=== PATIENT | female | born 1950 | race Caucasian/White ===

== ENCOUNTER 2023-01-20 09:17 | Inpatient (IN) | payer MEDICARE, SELFPAY ==
[2023-01-20] VITALS (10 sets, daily range): BP systolic 103–119; BP diastolic 69–76; PULSE 92–109; RESP 18–22; TEMP 36.3–37.1; O2SAT 86–98; BMI 23.3
--- NOTE | ~2023-01-20 | XR_ITS ---
EXAMINATION: XR chest 1V DATE: 01/22/2023 12:58 INDICATION: Status post left seventh rib biopsy TECHNIQUE: frontal view of the chest was obtained. COMPARISON: Chest radiograph dated 01/20/2023 FINDINGS: Persistent opacities in the right mid to lower lung zone consistent with small right pleural effusion and associated atelectasis, pneumonia or malignancy. Minimal left basilar atelectasis. No pneumothor ax or left-sided pleural effusion. Heart size is normal. The cardiomediastinal silhouette is normal. Visualized bones and soft tissues are unremarkable. IMPRESSION: 1. No pneumothorax or left pleural effusion post exchange left seventh rib biopsy. 2. Unchanged opacities in the right mid to lower lung zone consistent with small pleural effusion and associated atelectasis, pneumonia, malignancy or some combination thereof. Reviewed, dictated and finalized at location A. IMPRESSION: 1. No pneumothorax or left pleural effusion post exchange left seventh rib biop sy. 2. Unchanged opacities in the right mid to lower lung zone consistent with smal l pleural effusion and associated atelectasis, pneumonia, malignancy or some co mbination thereof.
--- NOTE | ~2023-01-20 | CT_ITS ---
EXAMINATION: CT abdomen pelvis w con INDICATION: Weakness and early satiety TECHNIQUE: Computed tomographic images of the abdomen and pelvis were obtained after the administrati on of 100 cc of Omnipaque 350 intravenous contrast. The dose-length product (DLP) was 381.91 mGy-cm. Automated exposure control and iterative reconstruction technique were employed. COMPARISON: None available FINDINGS: There are pulmonary emboli in the lingula and left lower lobe. There is collapse of much of the right lower lobe with multiple ill-defined heterogeneous masses. There is right hilar and subcar inal lymphadenopathy. The heart size is normal. There is a 2.2 x 1.6 cm mass of the gastrohepatic lig ament. A small right pleural effusion is noted. The liver, spleen, pancreas, and adrenal glands are n ormal. Stones are present in the nondistended gallbladder. The kidneys are unremarkable. There are no dilated loops of bowel. Colonic diverticulosis is present without evidence of diverticulitis. Thromb us is noted in the left superficial femoral vein. There are multiple lytic vertebral body masses of t he spine. A soft tissue mass of L3 extends beyond the posterior margin of the vertebral body and exte nds into the central spinal canal. Lytic lesions are also noted in the right iliac wing as well as mu ltiple ribs. No free intraperitoneal gas or evidence of bowel obstruction. IMPRESSION: 1. Right lower lobe mass with collapse of much of the right lower lobe. 2. Widespread osseous metastatic disease as well as subcarinal and upper abdominal lymphadenopathy. 3. Pulmonary emboli in proximal segmental branches of the lingula and left lower lobe. 4. Deep venous thrombosis of the left superficial femoral vein. These findings were discussed with Elsa Byrd PA-C in the Emergency Department at [facility] on 01/20/2023. Reviewed, dictated and finalized at location L. IMPRESSION: 1. Right lower lobe mass with collapse of much of the right lower lobe. 2. Widespread osseous metastatic disease as well as subcarinal and upper abdomi nal lymphadenopathy. 3. Pulmonary emboli in proximal segmental branches of the lingula and left lowe r lobe. 4. Deep venous thrombosis of the left superficial femoral vein. These findings were discussed with Elsa Byrd PA-C in the Emergency Department at 1145 hours on 01/20/2023.
--- NOTE | ~2023-01-20 | US_ITS ---
EXAMINATION: US venous doppler [facility] DATE: 01/20/2023 13:11 INDICATION: Acute pulmonary embolus TECHNIQUE: Dawson scale images without and with compression and Doppler images of the bilateral lower e xtremity veins were obtained. COMPARISON: None FINDINGS: The right common femoral vein, profunda femoral vein, femoral vein, popliteal vein, peroneal trunk, p osterior tibial veins, and greater saphenous vein are patent. There is thrombosis in the left femoral, popliteal, and gastrocnemius veins and partial thrombosis in the posterior tibial veins peroneal veins not evaluated. The common femoral, profunda, and greater s aphenous veins are patent. IMPRESSION: 1. Thrombosis in the left femoral, popliteal, and gastrocnemius veins and partial thrombosis of the l eft posterior tibial veins, known findings from today's CT examination. Reviewed, dictated and finalized at location L. IMPRESSION: 1. Thrombosis in the left femoral, popliteal, and gastrocnemius veins and parti al thrombosis of the left posterior tibial veins, known findings from today's C T examination.
--- NOTE | ~2023-01-20 | CT_ITS ---
EXAMINATION: CT brain wo con DATE: 01/20/2023 18:48 INDICATION: metastases vs. hemorrhage . TECHNIQUE: Computed tomography (CT) of the head was performed without intravenous contrast. The mA wa s adjusted according to patient size. Iterative reconstruction technique was employed. The dose-lengt h product was 756.67 mGy-cm. COMPARISON: CT brain, same date at 12:34 PM. FINDINGS: No acute intracranial hemorrhage or extra-axial fluid collection. No hydrocephalus, mass, or herniation. The 6 mm right parietal region lesion is no longer identified. No acute ischemic infarct. Unremarkable dural venous sinus attenuation. No acute osseous abnormality. The aerated spaces are clear. Mild atrophy and chronic white matter change. Atherosclerotic intracranial calcification. IMPRESSION: The 6 mm right parietal region hypodensity is no longer seen, which most likely represents resolved s purious contrast enhancement of a metastatic brain lesion. Consider nonemergent but timely MR of the brain without and with contrast for further evaluation. Reviewed, dictated and finalized at location K. IMPRESSION: The 6 mm right parietal region hypodensity is no longer seen, which most likely represents resolved spurious contrast enhancement of a metastatic brain lesion . Consider nonemergent but timely MR of the brain without and with contrast for further evaluation.
--- NOTE | ~2023-01-20 | XR_ITS ---
EXAMINATION: XR chest 2V DATE: 01/20/2023 10:26 INDICATION: Shortness of breath and weakness TECHNIQUE: PA and lateral views of the chest are obtained. COMPARISON: None available FINDINGS: There are minimal airspace opacities of the lung bases. There are small pleural effusions, right greater than left. The cardiomediastinal silhouette is normal. There is mild thoracic spondylos is. IMPRESSION: 1. Small pleural effusions, right greater than left, with associated bibasilar airspace opacities, li gemini atelectasis. Reviewed, dictated and finalized at location L. IMPRESSION: 1. Small pleural effusions, right greater than left, with associated bibasilar airspace opacities, likely atelectasis.
--- NOTE | ~2023-01-20 | XR_ITS ---
XR lumbar spine 2-3V DATE: 01/25/2023 18:01 INDICATION: Fall. Back pain, more on the left. TECHNIQUE: AP, lateral, coned lateral lumbosacral views COMPARISON: None FINDINGS: There is mild dorsal scoliosis of the lumbar spine. There is moderately severe to severe degenerative disc disease throughout the lumbar and lumbosacral spine, most severe at L2-3, L4-5 and L5-S1. There is degenerative change at the apophyseal joints with grade 1 anterolisthesis at L4-5. No fracture or bone destruction. The included lower thoracic and lumbar pedicles are intact. Normal sacroiliac joints. IMPRESSION: Moderately severe to severe degenerative disc disease Grade 1 anterolisthesis at L4-5 due to degenerative change at the apophyseal joints Reviewed, dictated and finalized at location A. IMPRESSION: Moderately severe to severe degenerative disc disease Grade 1 anterolisthesis at L4-5 due to degenerative change at the apophyseal pavel ints
--- NOTE | ~2023-01-20 | CT_ITS ---
EXAMINATION: CT brain wo con DATE: 01/20/2023 12:41 INDICATION: Metastatic disease TECHNIQUE: Computed tomography (CT) of the head was performed without intravenous contrast. Sagittal and coronal reconstructions were performed. The mA was adjusted according to patient size. Iterative reconstruction technique was employed. The dose-length product was 605.33 mGy-cm. COMPARISON: None FINDINGS: There is residual intravascular contrast related to the contrast enhanced CT of the abdomen and pelvi s performed an hour and 15 minutes earlier. There is a 6 mm enhancing intra-axial lesion in the right temporoparieto-occipital region suspicious for metastatic disease. No other larger masses, mass effe ct or other abnormally enhancing brain lesions. No acute intracranial hemorrhage, acute infarction or abnormal extra axial fluid collection. There is mild scattered white matter hypoattenuation consiste nt with chronic small vessel ischemic disease. Ventricles are normal and symmetric. The orbits, paran kenny sinuses and mastoid air cells are normal. Left vertebral artery is dominant. Intracranial calcif ied cerebral atherosclerosis is noted. IMPRESSION: 1. 6 mm hypoattenuation lesion at the right temporal parietal occipital region suspicious for facet d isease with enhancement resulting from residual intravenous contrast from earlier contrast-enhanced C T of the abdomen and pelvis. Differential would include less likely small intraparenchymal hemorrhage . Dr. Jo discussed these findings with Dr. Byrd at 12:55 PM. 2. Mild scattered white matter hypoattenuation consistent with chronic small vessel ischemic disease. Reviewed, dictated and finalized at location A. IMPRESSION: 1. 6 mm hypoattenuation lesion at the right temporal parietal occipital region suspicious for facet disease with enhancement resulting from residual intraveno us contrast from earlier contrast-enhanced CT of the abdomen and pelvis. Differ ential would include less likely small intraparenchymal hemorrhage. Dr. Hand t discussed these findings with Dr. Byrd at 12:55 PM. 2. Mild scattered white matter hypoattenuation consistent with chronic small ve ssel ischemic disease.
--- NOTE | ~2023-01-20 | CT_ITS ---
CT Scan of the Chest without Contrast: Clinical Indication: Malignancy Technique: Contiguous sections were acquired throughout the chest without intravenous contrast. Dose reduction technique was used on this scan by utilizing automated exposure control and iterative recon struction technique. The dose-length product (DLP) was 123.91 mGy-cm. Findings: There is lymphadenopathy in the upper mediastinum, at the precarinal region, and probably in the subc arinal and right hilar regions. No aortic aneurysm. Coronary artery calcifications are present. There is extensive dense consolidation throughout the right lung base, with extensive, near complete consolidation of the right middle and lower lobes. Left lung is clear. Images through the upper abdomen reveal fatty infiltration of the liver. Multiple lytic lesions are present scattered through the visualized skeleton. Impression: Dense, near complete consolidation of the right middle and lower lobes. There is presumed underlying malignancy, though differentiation between malignancy and atelectatic lung is very limited. Precise d elineation of the extent of malignant involvement is limited. Lytic osseous lesions are consistent with metastatic disease. Mediastinal and right hilar lymphadenopathy is compatible with marylu metastatic disease. Fatty infiltration of the liver. Reviewed, dictated and finalized at location . Impression: Dense, near complete consolidation of the right middle and lower lobes. There i s presumed underlying malignancy, though differentiation between malignancy and atelectatic lung is very limited. Precise delineation of the extent of maligna nt involvement is limited. Lytic osseous lesions are consistent with metastatic disease. Mediastinal and right hilar lymphadenopathy is compatible with marylu metastatic disease. Fatty infiltration of the liver.
--- NOTE | ~2023-01-20 | MR_ITS ---
MRI of the brain Clinical History: Right parietal lesion Technique: Axial and sagittal T1-weighted images were acquired. These were followed by axial T2-weigh aym, diffusion weighted, gradient, and FLAIR images. Following intravenous administration of 13 cc Mu ltiHance gadolinium, T1-weighted fat-sat imaging was performed in the axial and coronal and sagittal planes. Findings: Several small foci of restricted diffusion in the high left frontal and left parietal lobes . Questionable small focus of restricted diffusion in the left cerebellar hemisphere. There is a 5 mm ring-enhancing lesion in the right parietal lobe with mild surrounding vasogenic hien a (series 9 image 14). No other intracranial mass lesion identified. There are mild background chroni c white matter changes in the periventricular white matter bilaterally. Ventricles and subarachnoid spaces are unremarkable. Orbits are unremarkable. Paranasal sinuses and m astoid air cells are clear. Major intracranial flow voids appear intact. Sagittal midline structures are intact. No other abnormal postcontrast enhancement identified. IMPRESSION: 5 mm ring-enhancing right parietal lobe lesion with mild surrounding vasogenic edema, most consistent with a small metastatic lesion. Several small focal areas of acute infarct in the left frontal and parietal lobes, as well as questio nable small focus of additional acute infarct in the left cerebellum. Mild background chronic white matter changes. Reviewed, dictated and finalized at location M. IMPRESSION: 5 mm ring-enhancing right parietal lobe lesion with mild surrounding vasogenic edema, most consistent with a small metastatic lesion. Several small focal areas of acute infarct in the left frontal and parietal lob es, as well as questionable small focus of additional acute infarct in the left cerebellum. Mild background chronic white matter changes.
--- NOTE | ~2023-01-20 | US_ITS ---
EXAMINATION: US biopsy bone superficial DATE: 01/22/2023 13:12 INDICATION: Metastatic lytic left seventh rib bone lesion TECHNIQUE: The procedure including the risks and benefits was discussed with the patient. Risks discu ssed included bleeding and infection. The patient understood the risks and agreed to proceed. The sk in overlying the anterior left seventh rib was prepped and draped in usual sterile fashion. Anesthet ic was administered with 1% lidocaine subcutaneously. An 18 gauge core biopsy needle was advanced un orquidea continuous ultrasound observation to the lesion of interest. 6 core biopsy specimens were obtain ed. The needle was removed and the entry site was cleaned and dressed. Post procedure ultrasound de monstrated no hemorrhage. Post procedure chest radiograph demonstrated no left-sided pneumothorax or pleural effusion. FINDINGS: Ultrasound images demonstrate patchy needle advanced into a hypoechoic expansile lytic mass at the medial posterior left seventh rib. The lesion measures approximately 4 x 1.5 cm with mildly l obular margins with localized loss of the overlying echogenic and shadowing posterior cortex. IMPRESSION: 1. Successful Ultrasound-guided biopsy of expansile likely metastatic lytic mass at the posterior lef t seventh rib. Reviewed, dictated and finalized at location A. IMPRESSION: 1. Successful Ultrasound-guided biopsy of expansile likely metastatic lytic mas s at the posterior left seventh rib.
--- NOTE | ~2023-01-20 | XR_ITS ---
XR hip BI 2V w AP pelvis DATE: 01/25/2023 18:01 INDICATION: Fall. Pain. TECHNIQUE: AP pelvis. AP and lateral views of each COMPARISON: None FINDINGS: Severe degenerative disc disease is included L2-3, L3-4, L4-5 and L5-S1. The pubic symphysis and sacroiliac joints are intact. Mild bilateral hip osteoarthritis. No pelvic fracture or bone destruction. The pubic symphysis and sacroiliac joints are intact. No fracture or dislocation, avascular necrosis or bone destruction of either hip. IMPRESSION: Multilevel severe lumbar degenerative disc disease Mild bilateral hip osteoarthritis Reviewed, dictated and finalized at location A.
--- NOTE | 2023-01-20 09:46 | ECG_ITS ---
Measurements Intervals [place] Rate: 96 P: 39 MN: 139 QRS: -26 QRSD: 134 T: 26 QT: 374 QTc: 474 Interpretive Statements SINUS RHYTHM RIGHT BUNDLE BRANCH BLOCK ABNORMAL ECG NO PREVIOUS ECG AVAILABLE FOR COMPARISON Electronically Signed On 01-20-2023 16:29:59 CDT by Terry Chopra D.O.
--- NOTE | 2023-01-20 09:52 | ED.GENADULT ---
HPI - General Adult General Chief complaint: Weakness <Elsa Byrd PA-C - Last Filed: 01/20/23 19:26> Stated complaint: no appetite for 1 month <Elsa Byrd PA-C - Last Filed: 01/20/23 19:26> Time Seen by Provider: 01/20/23 09:39 <Elsa Byrd PA-C - Last Filed: 01/20/23 19:26> History of Present Illness HPI narrative: Patient is a 72-year-old female with history of hypertension here due to concerns over weakness. Patient states that she has felt generally unwell for the past 2 or 3 weeks, progressing in nature, over the past several days she has felt increased difficulty with her ADLs. +intentional 20 lb weight loss over past 2 months. She additionally feels short of breath, has little to no appetite and feels dehydrated. She states that she saw her PCP for this issue, had outpatient labs that showed an elevated TSH, elevated platelets and elevated white blood cell count. Her PCP ordered follow-up labs but patient stated that she cannot wait to have these done as an outpatient because she felt too weak. She denies any chest pain, nausea or vomiting, constipation, fevers or chills, cough, leg swelling. <Elsa Byrd PA-C - Last Filed: 01/20/23 19:26> Related Data Allergies/adverse reactions: Allergies Allergy/AdvReac Type Severity Reaction Status Date / Time No Known Allergies Allergy Verified 01/08/23 14:29 <Elsa Byrd PA-C - Last Filed: 01/20/23 19:26> Review of Systems Review of Systems: Gen.: Reports weakness Eyes: Denies eye pain or visual change ENT: Denies congestion Respiratory: Reports shortness of breath CV: Denies chest pain or palpitations GI: Denies abdominal pain nausea, emesis or diarrhea denies burning, urgency, frequency or hematuria Musculoskeletal: Denies back pain or muscle pain Neuro: Denies numbness, tingling, weakness or focal weakness Skin: Denies rash Except as documented, all other systems reviewed and negative <Elsa Byrd PA-C - Last Filed: 01/20/23 19:26> PMFSH Past Medical History Medical History: Medical History (Updated 01/21/23 @ 13:14 by Marcelo Mcmahon MD) Anxiety Hypertension <Elsa Byrd PA-C - Last Filed: 01/20/23 19:26> Surgical History Surgical History: Surgical History (Updated 01/21/23 @ 13:14 by Marcelo Mcmahon MD) Status post surgical removal of malignant neoplasm of skin <Elsa Byrd PA-C - Last Filed: 01/20/23 19:26> Family History Family History: Family History Mother Family history of malignant neoplasm Other Family history of congenital heart disease <Elsa Byrd PA-C - Last Filed: 01/20/23 19:26> Social History Social History: Social History (Updated 01/20/23 @ 23:15 by Jessica Tilley PA-C) Social History: Surrogate medical decision maker: Yesenia Donaldson, daughter. Code status: Full code. Smoking status: Former smoker Additional smoking assessment comments: Quit 38 years ago. Alcohol intake: never Substance use: current Substance use type: marijuana Lack of Transportation: No Lack of Food: Never True Current Housing: I Have Housing Concerned About Future Housing: No Difficulty Paying Gas/Electric Bills: No Difficulty Paying for Meds: No Currently Unemployed: No Education: High School Diploma/GED Difficulty w/ Childcare or Family Care: Decline to Answer Additional living arrangements comments: Lives alone in [place]. Additional occupation/education comments: Retired from [employer]. Spiritual care concerns: No <Elsa Byrd PA-C - Last Filed: 01/20/23 19:26> Exam Narrative: APPEARANCE: Well appearing, no pain in distress, well-nourished. Head: Normocephalic and atraumatic. EYES: PERRLA/EOMI, conjunctivae clear NOSE: No nasal drainage EARS: External ear normal in appearanc
[2023-01-20 10:34] LABS: Lactic Acid Reflex 2.2 mmol/L (0.7-2.0)
[2023-01-20 10:34] LABS: Basophils Absolute Auto 0.1 K/mm3 (0.0-0.1); Basophils Percent Auto 0.4 % (0.2-1.2); Eosinophils Absolute Auto 0.1 K/mm3 (0-0.3); Eosinophils Percent Auto 0.2 % (0-4.4); Hematocrit 36.3 % (37.0-47.0); Hemoglobin 11.1 g/dL (12.0-15.0); Immature Granulocyte Absolute 0.32 K/mm3 (0.00-0.031); Immature Granulocyte Percent A 1.5 % (0-0.5); Lymphocytes Absolute Auto 2.12 K/mm3 (0.9-3.2); Lymphocytes Percent Auto 9.7 % (18.3-44.2); Mean Corpuscular HGB Conc 30.6 g/dl (32-36); Mean Corpuscular Hemoglobin 25.3 pg (26-34); Mean Corpuscular Volume 82.9 fl (80-100); Mean Platelet Volume 9.2 fl (7.4-10.4); Monocytes Absolute Auto 1.6 K/mm3 (0.1-0.6); Monocytes Percent Auto 7.5 % (2.6-8.5); Neutrophils Absolute Auto 17.5 K/mm3 (1.3-6.7); Neutrophils Percent Auto 80.7 % (45.5-73.1); Platelet Count Result 613 k/mm3 (150-375); Red Blood Count 4.38 M/mm3 (4.2-5.4); Red Cell Distribution Width 16.5 % (11.5-14.5); White Blood Count 21.8 K/mm3 (4.5-10.0)
[2023-01-20 10:49] LABS: Alanine Aminotransferase 58 U/L (6-35); Albumin Level 3.5 g/dL (3.5-5.1); Alkaline Phosphatase 145 U/L (38-126); Anion Gap 9 mmol/L (8-16); Aspartate Amino Transferase 65 U/L (14-36); Bilirubin,Total 0.7 mg/dL (0.2-1.3); Blood Urea Nitrogen 11 mg/dL (7-17); Carbon Dioxide 27 mmol/L (22-30); Chloride 98 mmol/L (98-107); Estimated CRCL calculation 71 ml/min; Estimated Glomerular Filt Rate > 60; Glucose 156 mg/dL (65-110); Lipase 47 U/L (23-300); Sodium 134 mmol/L (137-145)
[2023-01-20 10:57] LABS: Influenza A QL RT-PCR Negative (Negative); Influenza B QL RT-PCR Negative (Negative); SARS-CoV-2 RNA PCR Negative
[2023-01-20 11:02] LABS: INR 1.3; Prothrombin Time 15.5 Seconds (11.1-14.7)
[2023-01-20 11:03] LABS: Partial Thromboplastin Time 30.7 SECONDS (22.3-36.8)
[2023-01-20] MEDS: SODIUM CHLORIDE 0.9% IV 1,000 ML 999 ML IV CONT ×2 (11:10→15:34)
[2023-01-20 11:29] LABS: NT Pro B Type Natriuretic Pept 333 pg/mL (19.9-100)
[2023-01-20] MEDS: ENOXAPARIN 60 MG/0.6 ML SYRINGE SUB-Q ×2 (13:09→23:08)
[2023-01-20 13:13] LABS: Reflex Lactic Acid Yes or No Add Lactic
[2023-01-20 13:30] LABS: Appearance Urine Clear (Clear); Bacteria Urine Rare /hpf; Bilirubin Urine Negative (Negative); Blood Urine Negative (Negative); Color Urine Yellow (Yellow); Glucose Urine UA Negative (Negative); Ketones Urine Negative (Negative); Leukocyte Esterase Ur Trace LEU/UL (Negative); Nitrate Urine Negative (Negative); Non Pathogenic Casts 0-2; Protein Urine Trace mg/dL (Negative); RBC Urine 0-2 /hpf (0-2); Squamous Epithelial Cell Urine Few /hpf (Few)
[2023-01-20 13:41] LABS: Lactic Acid 2.2 mmol/L (0.7-2.0)
[2023-01-20 13:53] LABS: Specific Grav Ur 1.073 (1.001-1.035)
[2023-01-20 14:09] LABS: Add Urine Microscopic? YES
[2023-01-20] MEDS: MORPHINE SULFATE (*CRX) 4 MG/ML INJ IV PUSH ×2 (15:42→19:07)
--- NOTE | 2023-01-20 20:00 | PM.IMHP ---
H&P: HPI History of Present Illness Date/Time: 01/20/23 20:00 Chief Complaint: Weakness, poor appetite, and other symptoms. Narrative: This is a very pleasant 72-year-old female with hypertension who presented to the emergency department from home for evaluation of weakness, poor appetite, and other symptoms. Patient provides the following history. She had a fall in November in which she landed on her right side and she endorses pain in her ribs since that time. She has also lost 20 lb in the last couple of months however to be did that to the fact that she started to do intermittent fasting. Her appetite has been poor however and she endorses early satiety. She feels run down and dehydrated. The last several weeks she has had occasional sensations of racing heart and is getting short of breath with exertion. She has an occasional cough which is rarely productive of clear phlegm. She saw her doctor recently and had labs drawn. According to the patient her white blood cell count was elevated as well as her TSH and her platelet count. Follow-up labs and imaging were ordered though she has not had them done as of yet because she is felt to weak. She denies fever, chills, sweats, headache, vertigo, focal weakness, sinus congestion, sore throat, chest and pleuritic pain, vomiting, diarrhea, melena, hematochezia, dysuria, syncope, near syncope. Vital signs were stable on arrival to the ED. pertinent labs include a WBC count of 21.1, hemoglobin 11.1, platelets 613, sodium 134, potassium 4.0, BUN 11, creatinine 0.60, lactic acid 2.2, AST 65, ALT 58, alkaline phosphatase 145, total bilirubin 0.7, TSH 8.230, T4 13.10, lipase 47. Urine specific gravity was elevated with trace leukocyte esterase, rare bacteria, and 11 to 20 WBC. She was negative for influenza and COVID. CT of the abdomen and pelvis showed a right lower lobe mass with collapse of much of the right lower lobe with widespread osseous metastatic disease as well as subcarinal and upper abdominal lymphadenopathy, pulmonary emboli in the proximal segmental branches of the lingula and left lower lobe, and deep venous thrombosis of the left superficial femoral vein. Initial brain CT showed a 6 mm hypoattenuation lesion at the right temporal parietal occipital region suspicious for metastatic disease. As she had previously gotten IV contrast there was some enhancement and small intraparenchymal hemorrhage could not be ruled out. The lesion was no longer seen on repeat brain CT 6 hours thereafter. She is being admitted in this setting for further treatment and evaluation. Review of Systems Review of Systems: Twelve systems were reviewed and are negative except for as per HPI. [facility] Past Medical History Medical History (Updated 01/20/23 @ 23:37 by Jessica Tilley PA-C) Anxiety Hypertension Surgical History Surgical History (Updated 01/20/23 @ 23:12 by Jessica Tilley PA-C) Status post surgical removal of malignant neoplasm of skin Family History Family History Mother Family history of malignant neoplasm Other Family history of congenital heart disease Social History Social History (Updated 01/20/23 @ 23:15 by Jessica Tilley PA-C) Social History: Surrogate medical decision maker: Yesenia Donaldson, daughter. Code status: Full code. Smoking status: Former smoker Additional smoking assessment comments: Quit 38 years ago. Alcohol intake: never Substance use: current Substance use type: marijuana Lack of Transportation: No Lack of Food: Never True Current Housing: I Have Housing Concerned About Future Housing: No Difficulty Paying Gas/Electric Bills: No Difficulty Paying for Meds: No Currently Unemployed: No Education: High School Diploma/GED Difficulty w/ Childcare or Family Care: Decline to Answer Additional living arrangements comments: Lives alone in [place]. Additional occupation/educ
--- NOTE | 2023-01-20 21:41 | ADMGEN ---
This patient, Swati Mancia, was admitted to [facility] Room 322-02. Patient/family oriented to hospital policies and general routines including ID bracelet, bed and alarms, visiting hours, pain management, procedures, bathroom and other care routines, personal items, smoking policy, room service/diet, and visiting hours. Information on how to activate the Rapid Response Team has been discussed. Patient/Family are encouraged to report perceived risks to care and to ask questions if they do not understand what they are told or what they should do.
[2023-01-21] VITALS (8 sets, daily range): BP systolic 113–128; BP diastolic 68–74; PULSE 89–94; RESP 18–20; TEMP 36.2–36.7; O2SAT 90–95
[2023-01-21] MEDS: PIPERACILLN/TAZ 3.375GM/NS50ML 3.375 GM/50 ML BAG IVPB ×5 (00:43→23:22)
[2023-01-21] MEDS: HYDROcodone/acetaminophen (*CRX) 5-325 MG TABLET 1 TAB PO ×3 (05:14→20:14)
[2023-01-21 06:44] LABS: Hematocrit 28.6 % (37.0-47.0); Hemoglobin 8.9 g/dL (12.0-15.0); Mean Corpuscular HGB Conc 31.1 g/dl (32-36); Mean Corpuscular Hemoglobin 25.3 pg (26-34); Mean Corpuscular Volume 81.3 fl (80-100); Mean Platelet Volume 9.2 fl (7.4-10.4); Platelet Count Result 535 k/mm3 (150-375); Red Blood Count 3.52 M/mm3 (4.2-5.4); Red Cell Distribution Width 16.5 % (11.5-14.5); White Blood Count 19.6 K/mm3 (4.5-10.0)
[2023-01-21 06:52] LABS: Alanine Aminotransferase 37 U/L (6-35); Albumin Level 2.9 g/dL (3.5-5.1); Alkaline Phosphatase 103 U/L (38-126); Anion Gap 5 mmol/L (8-16); Aspartate Amino Transferase 36 U/L (14-36); Bilirubin,Total 0.7 mg/dL (0.2-1.3); Blood Urea Nitrogen 6 mg/dL (7-17); Calcium 8.6 mg/dL (8.4-10.2); Carbon Dioxide 27 mmol/L (22-30); Chloride 101 mmol/L (98-107); Estimated CRCL calculation 102 ml/min; Estimated Glomerular Filt Rate > 60; Glucose 101 mg/dL (65-110); Magnesium 1.9 mg/dL (1.6-2.3); Potassium 3.8 mmol/L (3.4-5.0); Sodium 133 mmol/L (137-145)
--- NOTE | 2023-01-21 08:00 | ECHO_ITS ---
Patient Info Name: Swati Mancia Age: 72 years : 1950 Gender: Female Ht: 67 in Wt: 148 lbs BSA: 1.79 m2 HR: 78 bpm BP: 119 / 73 mmHg Heart Rhythm: Sinus Rhythm, Right Bundle Branch Block Technical Quality: Good Exam Date: 01/21/2023 9:37 AM Exam Location: [facility] Room: [facility] Patient Status: Inpatient Admit Date: 01/21/2023 Staff Ordering Physician: Jessica Tilley PA-C Video Control Engineer: Lea Moore RDCS Attending Provider: Mike Stapleton MD Referring Physician: Jarek CESAR; Exam Type: CA echo doppler color flow Study Info Indications - pulmonary embolism hypertension Complete two-dimensional, color flow and Doppler transthoracic echocardiogram is performed. Summary 1. Complete two-dimensional, color flow and Doppler transthoracic echocardiogram is performed. 2. Left ventricular chamber dimension is normal. 3. Left ventricular systolic function is normal, estimated at 60-65%. 4. Left ventricular septal wall motion is abnormal with septal motion related to bundle branch block. 5. The left ventricular diastolic function is grade I diastolic dysfunction. 6. Right ventricular chamber dimension is mildly enlarged. 7. Right ventricular systolic function is normal. 8. Atrial septum appears aneurysmal. 9. There is trace mitral valve regurgitation. 10. There is trace tricuspid valve regurgitation. 11. There is trivial pericardial effusion. Left Ventricle Left ventricular chamber dimension is normal. Left ventricular systolic function is normal, estimated at 60-65%. There is no increased left ventricular wall thickness. Left ventricular septal wall motion is abnormal with septal motion related to bundle branch block. The left ventricular diastolic function is grade I diastolic dysfunction. Right Ventricle Right ventricular chamber dimension is mildly enlarged. Right ventricular systolic function is normal. Left Atria Left atrial chamber dimension is normal. Right Atria Right atrial chamber dimension is normal. Atrial Septum Atrial septum appears aneurysmal. Intact interatrial septum visualized by color flow imaging. Aortic Valve The aortic valve is trileaflet. There is no aortic valve stenosis. There is no aortic valve regurgitation. There is mild aortic valve calcification. Pulmonic Valve The pulmonic valve is not well visualized. Mitral Valve The mitral valve has normal leaflets. There is no mitral valve stenosis. There is trace mitral valve regurgitation. Tricuspid Valve There is no significant tricuspid valve stenosis. There is trace tricuspid valve regurgitation. Pericardium/Pleural There is trivial pericardial effusion. Inferior Vena Cava Normal inferior vena cava with >50% collapse upon inspiration consistent with normal right atrial pressure, 3 mmHg. Aorta The aortic root size at the sinus of Valsalva is normal. Left Ventricular Outflow Tract Name Value Normal LVOT 2D LVOT Diameter 2.0 cm LVOT Doppler LVOT Peak Gradient 5 mmHg LVOT Mean Gradient 3 mmHg
[2023-01-21 08:54] LABS: Hepatitis B Surface Antigen Negative (Negative)
[2023-01-21 09:00] LABS: HAV RESULT Negative (Negative); Hepatitis B Core IgM Result Negative (Negative)
[2023-01-21 09:12] LABS: Hepatitis C Virus Antibody Negative (Negative)
[2023-01-21] MEDS: amLODIPine BESYLATE 5 MG TABLET 10 MG PO (09:12)
[2023-01-21] MEDS: ENOXAPARIN 80 MG/0.8 ML SYRINGE 70 MG SUB-Q (09:13)
[2023-01-21 09:38] LABS: Free T4 Free Thyroxine Reflex 1.86 ng/dL (0.78-2.19)
[2023-01-21 10:51] LABS: Total Triiodothyronine (T3) 1.33 NG/ML (0.97-1.69)
--- NOTE | 2023-01-21 13:06 | PDONCCN ---
HPI - Date of Consult Date/Time: 01/21/23 13:06 Requesting Physician: Mike Stapleton MD Primary Care Provider: Ravindra Mayes DO - Consult Narrative Narrative: Swati Mancia is a 72 year old female with a distant smoking history presents with pain dyspnea PE with a large rt Lung lesion- Recent weight loss and rib pain on ER presentation findings of Lung mass PE and lymphadenopathy. She has a 6 mm brain lesion w/o mass effect and no neurologic symptoms. Untill recemtly in good health. No significant family history. leukocytosis and thrombocytosis most likely secondary to underlying neoplasm. Review of Systems - Constitutional Reports body ache(s), Reports weight loss - Respiratory Reports dyspnea PMFSH Medical History: Medical History (Last Updated 01/20/23 @ 23:13 by Jessica Tilley PA-C) Anxiety Hypertension Surgical History: Surgical History (Last Updated 01/20/23 @ 23:12 by Jessica Tilley PA-C) Status post surgical removal of malignant neoplasm of skin Family History: Family History (Last Reviewed 01/20/23 @ 23:13 by Jessica Tilley PA-C) Mother Family history of malignant neoplasm Other Family history of congenital heart disease - Social History Social History: Social History (Last Updated 01/20/23 @ 23:15 by Jessica Tilley PA-C) Alcohol Use: Alcohol intake: never Substance Use: Substance use: current Substance use type: marijuana Others: Spiritual care concerns: No Smoking Status: Smoking status: Former smoker Approximate Smoking End Date: 1984 Comments: Additional smoking assessment comments: Quit 38 years ago. Social Determinants of Health: Has the Lack of Transportation Kept You From Medical Appointments or From Getting Medications?: No Within the Past 12 Months, Were You Worried Whether Your Food Would Run Out Before You Got Money to Buy More?: Never True What is Your Housing Situation Today?: I Have Housing Are You Worried That in the Next 2 Months, You May Not Have Your Own Housing to Live In?: No Do You Have Trouble Paying Your Heating Or Electricity Bill?: No Do You Have Trouble Paying For Medicines?: No Are You Currently Unemployed and Looking for Work?: No Highest Level of Education Completed: High School Diploma/GED Do You Have Trouble With Childcare or the Care of a Family Member?: Decline to Answer Exam - General cachexic - Vital Signs Vital Signs - 24 hr 01/20/23 15:52 01/20/23 16:45 01/20/23 20:55 Temperature Pulse Rate 92 93 Respiratory Rate 20 22 H 18 Blood Pressure 105/75 116/69 113/74 Pulse Oximetry 95 91 Oxygen Delivery Oxygen Flow Rate 01/20/23 22:00 01/20/23 21:10 01/20/23 21:25 Temperature 36.3 C L Pulse Rate 93 Respiratory Rate 18 Blood Pressure 119/73 Pulse Oximetry 86 L 86 L 94 Oxygen Delivery Room Air Nasal Cannula Oxygen Flow Rate 2 01/21/23 00:05 01/21/23 04:00 01/21/23 06:00 Temperature 36.2 C L Pulse Rate 89 90 92 Respiratory Rate 18 Blood Pressure 113/70 Pulse Oximetry 95 Oxygen Delivery Oxygen Flow Rate 01/21/23 09:35 01/21/23 08:00 Temperature Pulse Rate Respiratory Rate Blood Pressure Pulse Oximetry 90 94 Oxygen Delivery Nasal Cannula Nasal Cannula Oxygen Flow Rate 2 2 - Lab Results Laboratory Last Values WBC 19.6 K/mm3 (4.5-10.0) H 01/21/23 06:17 RBC 3.52 M/mm3 (4.2-5.4) L 01/21/23 06:17 Hgb 8.9 g/dL (12.0-15.0) L 01/21/23 06:17 Hct 28.6 % (37.0-47.0) L 01/21/23 06:17 MCV 81.3 fl (80-100) 01/21/23 06:17 MCH 25.3 pg (26-34) L 01/21/23 06:17 MCHC 31.1 g/dl (32-36) L 01/21/23 06:17 RDW 16.5 % (11.5-14.5) H 01/21/23 06:17 Plt Count 535 k/mm3 (150-375) H 01/21/23 06:17 MPV 9.2 fl (7.4-10.4) 01/21/23 06:17 Immature Gran % (Auto) 1.5 % (0-0.5) H 01/20/23 09:55 Neut
--- NOTE | 2023-01-21 14:22 | PM.IMPN ---
Progress Note: A&P Assessment and Plan (1) Sepsis: Code(s): A41.9 - Sepsis, unspecified organism Status: Acute Assessment and Plan: Present on admission with tachycardia, leukocytosis, and elevated lactic acid level in the setting of presumed postobstructive pneumonia. Urine is a bit abnormal though she is asymptomatic. Blood, sputum, and urine cultures pending. Continue antibiotic health ordered (2) Postobstructive pneumonia: Code(s): J18.9 - Pneumonia, unspecified organism Status: Acute Assessment and Plan: Continue Zosyn. Sputum culture ordered. (3) Mass of right lung: Code(s): R91.8 - Other nonspecific abnormal finding of lung field Status: Acute Assessment and Plan: Multiple ill-defined heterogeneous masses noted in the right lower lobe on CT of the abdomen and pelvis with widespread osseous metastatic disease and subcarinal and upper abdominal lymphadenopathy. Oncology and pulmonology consulted. Discussed with oncologist suggested tissue biopsy. Discussed with Radiology for forms biopsy of right chest wall bony lesion for further evaluation hold Lovenox tonight and perform a biopsy tomorrow (4) Lytic bone lesions on xray: Code(s): M89.9 - Disorder of bone, unspecified Status: Acute Assessment and Plan: Patient has been having pain, mainly in the right ribs since November. Analgesics as needed. biopsy planned 1 of the bone lesions in the chest (5) Pulmonary embolism: Code(s): I26.99 - Other pulmonary embolism without acute cor pulmonale Status: Acute Assessment and Plan: Continue Lovenox 1 milligram/kilogram b.i.d.. (6) Left leg DVT: Code(s): I82.402 - Acute embolism and thrombosis of unspecified deep veins of left lower extremity Status: Acute Assessment and Plan: On anticoagulation as above. (7) Elevated LFTs: Code(s): R79.89 - Other specified abnormal findings of blood chemistry Status: Acute Assessment and Plan: Fatty infiltration of the liver noted on imaging. Continue to monitor. (8) Hypertension: Code(s): I10 - Essential (primary) hypertension Status: Acute Assessment and Plan: Blood pressures were reviewed and they are stable. Continue amlodipine and monitor. (9) Anxiety: Code(s): F41.9 - Anxiety disorder, unspecified Status: Acute Assessment and Plan: Patient stopped taking clonazepam earlier this year. A bit anxious now, likely due to above findings. Declines the need for benzodiazepines at this time. (10) Abnormal brain CT: Code(s): R90.89 - Other abnormal findings on diagnostic imaging of central nervous system Status: Acute Assessment and Plan: Initial brain CT showed a possible hypoattenuating lesion as detailed above. Repeat CT showed no evidence of the lesion. Given lung findings and lytic lesions, brain MRI has been ordered to rule out abnormality. Plan Medical decision making narrative History obtained from: Patient. History from independent sources: None. External chart review: None. New problems addressed: Lung mass, suspected pneumonia, metastatic disease, abnormal brain CT. Chronic illnesses addressed: Hypertension. Independent interpretation of studies: Labs, imaging, EKG, and all reports were personally reviewed. Diagnostic tests considered but not ordered: None. Shared decision making: Discussed with patient and daughter at bedside. In agreement with plan of care. Subjective Date/time seen: 01/21/23 14:22 Interval history: discussed with oncology, discussed with radiology. presentd with weakness, sob. found to have PE and lung mass with metastatic disease. need tissue biopsy. feels better. Had some back pain but has improved today. Intermittent cough. Denies shortness of breath. Review of Systems Review of Systems: All systems reviewed & are unremarkable except
--- NOTE | 2023-01-21 15:48 | PC.NURSE ---
On 01/21/23, the student, Amrit Issa, provided care and completed [facility] documentation on this patient. I have reviewed the student's documentation and agree with the findings.
[2023-01-21 21:14] LABS: Glucose Point of Care 117 mg/dl (65-105)
[2023-01-22] VITALS (10 sets, daily range): BP systolic 110–131; BP diastolic 65–80; PULSE 79–93; RESP 17–20; TEMP 36.1–36.7; O2SAT 87–96
[2023-01-22] MEDS: PIPERACILLN/TAZ 3.375GM/NS50ML 3.375 GM/50 ML BAG IVPB ×4 (06:12→23:46)
[2023-01-22 06:29] LABS: Basophils Absolute Auto 0.1 K/mm3 (0.0-0.1); Basophils Percent Auto 0.3 % (0.2-1.2); Eosinophils Absolute Auto 0.2 K/mm3 (0-0.3); Eosinophils Percent Auto 1.3 % (0-4.4); Hematocrit 27.7 % (37.0-47.0); Hemoglobin 8.4 g/dL (12.0-15.0); Immature Granulocyte Absolute 0.21 K/mm3 (0.00-0.031); Immature Granulocyte Percent A 1.2 % (0-0.5); Lymphocytes Absolute Auto 1.85 K/mm3 (0.9-3.2); Lymphocytes Percent Auto 10.4 % (18.3-44.2); Mean Corpuscular HGB Conc 30.3 g/dl (32-36); Mean Corpuscular Hemoglobin 24.9 pg (26-34); Mean Corpuscular Volume 82.2 fl (80-100); Mean Platelet Volume 9.3 fl (7.4-10.4); Monocytes Absolute Auto 1.8 K/mm3 (0.1-0.6); Monocytes Percent Auto 9.8 % (2.6-8.5); Neutrophils Absolute Auto 13.7 K/mm3 (1.3-6.7); Platelet Count Result 531 k/mm3 (150-375); Red Blood Count 3.37 M/mm3 (4.2-5.4); Red Cell Distribution Width 16.5 % (11.5-14.5); White Blood Count 17.8 K/mm3 (4.5-10.0)
[2023-01-22 06:38] LABS: INR 1.2
--- NOTE | 2023-01-22 06:43 | PM.CNPUL ---
Assessment and Plan Assessment and plan (1) Mass of right lung: Code(s): R91.8 - Other nonspecific abnormal finding of lung field Status: Acute Assessment and Plan: Patient with 15 pack year history of tobacco use, quit 1983, secondhand smoke exposure until 2020 and current daily marijuana exposure with a right lung mass, right lower lobe consolidation, multiple bone lytic lesions, Brain MRI with 5 mm ring-enhancing right parietal lobe lesion with mild surrounding vasogenic edema most consistent with a small metastatic lesion. I suspect the patient has metastatic lung cancer and the patient will have a bony lesion biopsied by Radiology later today. Oncology has been consulted. Patient has no clinical symptoms of a postobstructive bacterial pneumonia. She does have a leukocytosis which has improved with Zosyn, day 3 today. blood cultures are negative, urine with group B strep. From a pulmonary perspective I would treat the patient with antibiotics for total of 7 days. (2) Pulmonary embolism: Code(s): I26.99 - Other pulmonary embolism without acute cor pulmonale Status: Acute Assessment and Plan: Patient has left lower lobe and lingular PE on CT angiogram of the abdomen. She also has a left femoral, popliteal, gastrocnemius and a partial left posterior tibial thrombus. She was treated with Lovenox full dose and this is been held for her biopsy. She has been hemodynamically stable, her BNP was 333 and her echocardiogram shows no evidence of right heart strain. Patient also has a 5 mm ring-enhancing right parietal lobe lesion consistent with a small metastatic lesion and recommend neurologic consultation regarding the safety of anti coagulation. If it is felt that systemic anticoagulation is not warranted at this time the patient should be evaluated for an IVC filter. (3) Emphysema lung: Code(s): J43.9 - Emphysema, unspecified Status: Acute Assessment and Plan: Patient with 15 pack year history of tobacco use, quit 1983, secondhand smoke exposure until 2020 and current daily marijuana exposure. she has mild apical predominant paraseptal emphysema on her CT scan and she may have COPD. Prior to this current illness she had no respiratory limitations in her activity of daily living and at this time she has no evidence of a COPD exacerbation. Patient should be treated for her current DVT PE and presumed metastatic lung cancer and re-evaluated as an outpatient for ongoing symptoms and PFTs that may be consistent with COPD. She may benefit from a bronchodilator in the future. History of Present Illness History of Present Illness Consult date: 01/22/23 Chief complaint: lung mass, PE/DVT, bony metastases Narrative: 01/22/2023: This is a new pulmonary consult for lung mass. 72-year-old with a history of hypertension, basal cell carcinoma of the left nose and right cheek area status post resection on 12/10/2017 with clear margins and no recurrence per the patient. Patient presented to the emergency department on 01/20/2023 with 2 and half months of cough, decreased appetite, a fall with back pain and 2-3 weeks worsening shortness of breath and weakness. Patient denied fever, chills, rigors, phlegm production, hemoptysis. Patient was seen in the emergency department she was afebrile with a white blood cell count of 21.8, room air saturations 94%, BNP of 3000 hurt and 33, cope it and influenza RT PCR studies were negative. Patient had a CT of the abdomen with contrast that demonstrated right lower lung mass with collapse, left lower lobe and lingular pulmonary embolism, multiple osseous metastases. CT scan of the chest showed mild apical predominant paraseptal emphysema with right lower lobe collapse and a right hilar mass. Patient was started on ceftriaxone and azithromycin x1 dose, then given vancomycin x1 dose and then Zosyn. she was treated with full-dose Lovenox. Lower
[2023-01-22 06:49] LABS: Alanine Aminotransferase 40 U/L (6-35); Albumin Level 2.9 g/dL (3.5-5.1); Alkaline Phosphatase 107 U/L (38-126); Anion Gap 4 mmol/L (8-16); Aspartate Amino Transferase 57 U/L (14-36); Bilirubin,Total 0.6 mg/dL (0.2-1.3); Blood Urea Nitrogen 6 mg/dL (7-17); Carbon Dioxide 29 mmol/L (22-30); Chloride 100 mmol/L (98-107); Estimated CRCL calculation 84 ml/min; Estimated Glomerular Filt Rate > 60; Glucose 97 mg/dL (65-110); Magnesium 1.9 mg/dL (1.6-2.3); Potassium 3.6 mmol/L (3.4-5.0); Sodium 133 mmol/L (137-145)
[2023-01-22] MEDS: amLODIPine BESYLATE 5 MG TABLET 10 MG PO (08:10)
[2023-01-22] MEDS: HYDROcodone/acetaminophen (*CRX) 5-325 MG TABLET 1 TAB PO ×2 (13:45→18:27)
[2023-01-22] MEDS: ENOXAPARIN 80 MG/0.8 ML SYRINGE 70 MG SUB-Q ×2 (13:49→21:00)
--- NOTE | 2023-01-22 13:50 | PM.IMPN ---
Progress Note: A&P Assessment and Plan (1) Sepsis: Code(s): A41.9 - Sepsis, unspecified organism Status: Acute Assessment and Plan: Present on admission with tachycardia, leukocytosis, and elevated lactic acid level in the setting of presumed postobstructive pneumonia. Urine is a bit abnormal though she is asymptomatic. Blood, sputum, and urine cultures pending. Continue antibiotic has ordered (2) Postobstructive pneumonia: Code(s): J18.9 - Pneumonia, unspecified organism Status: Acute Assessment and Plan: Continue Zosyn. Sputum culture ordered. Leukocytosis slowly improving (3) Mass of right lung: Code(s): R91.8 - Other nonspecific abnormal finding of lung field Status: Acute Assessment and Plan: Multiple ill-defined heterogeneous masses noted in the right lower lobe on CT of the abdomen and pelvis with widespread osseous metastatic disease and subcarinal and upper abdominal lymphadenopathy. Oncology and pulmonology consulted. Discussed with oncologist suggested tissue biopsy. Discussed with Radiology for forms biopsy of right chest wall bony lesion for further evaluation Underwent biopsy of left rib lesion 01/22/2023 (4) Lytic bone lesions on xray: Code(s): M89.9 - Disorder of bone, unspecified Status: Acute Assessment and Plan: Patient has been having pain, mainly in the right ribs since November. Analgesics as needed. (5) Pulmonary embolism: Code(s): I26.99 - Other pulmonary embolism without acute cor pulmonale Status: Acute Assessment and Plan: Continue Lovenox 1 milligram/kilogram b.i.d.. Resume (6) Left leg DVT: Code(s): I82.402 - Acute embolism and thrombosis of unspecified deep veins of left lower extremity Status: Acute Assessment and Plan: On anticoagulation as above. (7) Elevated LFTs: Code(s): R79.89 - Other specified abnormal findings of blood chemistry Status: Acute Assessment and Plan: Fatty infiltration of the liver noted on imaging. Continue to monitor. (8) Hypertension: Code(s): I10 - Essential (primary) hypertension Status: Acute Assessment and Plan: Blood pressures were reviewed and they are stable. Continue amlodipine and monitor. (9) Anxiety: Code(s): F41.9 - Anxiety disorder, unspecified Status: Acute Assessment and Plan: Patient stopped taking clonazepam earlier this year. A bit anxious now, likely due to above findings. Declines the need for benzodiazepines at this time. (10) Abnormal brain CT: Code(s): R90.89 - Other abnormal findings on diagnostic imaging of central nervous system Status: Acute Assessment and Plan: Initial brain CT showed a possible hypoattenuating lesion as detailed above. Repeat CT showed no evidence of the lesion. Given lung findings and lytic lesions, brain MRI performed which revealed 5 mm ring-enhancing right parietal lobe lesion with mild surrounding vasogenic edema most consistent with small metastatic lesion. Several small focal areas of acute infarct in the left frontal and parietal lobes as well as questionable small focus of additional acute infarct in the left cerebellum. Mild background chronic white matter changes. Subjective Date/time seen: 01/22/23 13:50 Interval history: She is going to get the biopsy done today. Breathing is about the same. Denies any other complaint. No fever chills. Minimal cough. Review of Systems Review of Systems: All systems reviewed & are unremarkable except as noted in HPI and below Exam Narrative: General: Thin female in the semi-Wolff position in bed. HEENT: Wearing corrective lenses. PERRL, EOMI. Sclera anicteric. Neck: Supple. Respiratory: Respirations are nonlabored. She is speaking in full sentences. Currently on 2 L nasal cannula. Essentially absent lung sounds at the right base with so
--- NOTE | 2023-01-22 14:42 | WPDNEURCNPN ---
Assessment and Plan Assessment and plan (1) Abnormal brain CT: Code(s): R90.89 - Other abnormal findings on diagnostic imaging of central nervous system Status: Acute Plan complete evaluation if the diagnosis is confirmed might not need any intracranial intervention will be followed by the oncologist Consult date: 01/22/23 HPI: Swati Mancia is a 72 year old female has been admitted to the hospital through the emergency room for the complaints of generalized weakness in addition to the ongoing history of hypertension and also statement that she felt generally unwell for the last several weeks with gradually increasing difficulties with her ADL as and also weight loss over the last 8 weeks with anorexia as an outpatient on evaluation she was found to have elevated TSH and platelet count WBCs by her family physician she is not allergic to any medication, she has ongoing history of anxiety with hypertension and has undergone removal of the medic neoplasm of the skin she is a former smoker never alcohol intake or and on initial exam in the emergency room she was found to have no focal neurological deficit her vital signs were normal except pulse rate was 109 vital signs were stable routine lab studies with alkaline falls only 145 glucose 156 lactic acid 2.2 BNP 3 3 3 TSH 8.230 hepatitis screening negative T4 13.10 EKG in sinus rhythm at a rate of 96 but no atrial fibrillation CBC with leukocytosis, initial CT scan of the head no bleed no hydrocephalus no ischemic area and chronic white matter changes with mild atrophy but MRI of the brain documenting 5mm ring-enhancing right parietal lobe lesion with surrounding vasogenic edema consistent small metastatic lesion and several small focal areas of acute infarct in the left frontal and parietal lobes and possibly in the left cerebellum chest x-ray with opacity in the right mid to lower lung zone consistent with small pleural effusion and biopsies pending from the posterior left 7th rib, oncology consult has already been obtained with the possibility of likely lung primary and pulmonary angiogram has documented left lower lobe and lingular pulmonary emboli in addition to left femoral-popliteal gastrocnemius and partial left posterior tibial thrombus, echocardiogram with aneurysmal atrial septum with trace mitral valve regurgitation and tricuspid regurgitation and trivial pericardial effusion, treated for sepsis as well Review of Systems Review of Systems: All systems reviewed & are unremarkable except as noted in HPI and below PMFSH Past Medical History Medical History (Updated 01/22/23 @ 12:11 by Curt Pearl MD) Anxiety Hypertension Surgical History Surgical History (Updated 01/21/23 @ 13:14 by Marcelo Mcmahon MD) Status post surgical removal of malignant neoplasm of skin Family History Family History Mother Family history of malignant neoplasm Other Family history of congenital heart disease Social History Social History (Updated 01/20/23 @ 23:15 by Jessica Tilley PA-C) Social History: Surrogate medical decision maker: Yesenia Donaldson, daughter. Code status: Full code. Smoking status: Former smoker Additional smoking assessment comments: Quit 38 years ago. Alcohol intake: never Substance use: current Substance use type: marijuana Lack of Transportation: No Lack of Food: Never True Current Housing: I Have Housing Concerned About Future Housing: No Difficulty Paying Gas/Electric Bills: No Difficulty Paying for Meds: No Currently Unemployed: No Education: High School Diploma/GED Difficulty w/ Childcare or Family Care: Decline to Answer Additional living arrangements comments: Lives alone in [place]. 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 Spiritual care concerns: No Meds Home Medications and Allergies Home Medications Medicat
--- NOTE | 2023-01-22 17:37 | PC.NURSE ---
Manual entry for norco 5 administration charted for 13:45 on 01/22/23. The medication was not scanned in at this time, so manual entry was necessary. Administration verified by Tammi Gomez RN
[2023-01-23] VITALS (10 sets, daily range): BP systolic 100–106; BP diastolic 65–73; PULSE 77–98; RESP 16–18; TEMP 36.2–37; O2SAT 90–96
[2023-01-23] MEDS: PIPERACILLN/TAZ 3.375GM/NS50ML 3.375 GM/50 ML BAG IVPB ×4 (05:13→23:24)
[2023-01-23 07:01] LABS: Basophils Absolute Auto 0.1 K/mm3 (0.0-0.1); Basophils Percent Auto 0.4 % (0.2-1.2); Eosinophils Absolute Auto 0.2 K/mm3 (0-0.3); Eosinophils Percent Auto 1.1 % (0-4.4); Hematocrit 28.5 % (37.0-47.0); Hemoglobin 8.6 g/dL (12.0-15.0); Immature Granulocyte Absolute 0.19 K/mm3 (0.00-0.031); Immature Granulocyte Percent A 1.3 % (0-0.5); Lymphocytes Absolute Auto 1.67 K/mm3 (0.9-3.2); Lymphocytes Percent Auto 11.5 % (18.3-44.2); Mean Corpuscular HGB Conc 30.2 g/dl (32-36); Mean Corpuscular Hemoglobin 25.3 pg (26-34); Mean Corpuscular Volume 83.8 fl (80-100); Mean Platelet Volume 9.2 fl (7.4-10.4); Monocytes Absolute Auto 1.5 K/mm3 (0.1-0.6); Monocytes Percent Auto 10.4 % (2.6-8.5); Neutrophils Percent Auto 75.3 % (45.5-73.1); Platelet Count Result 540 k/mm3 (150-375); Red Cell Distribution Width 16.6 % (11.5-14.5); White Blood Count 14.5 K/mm3 (4.5-10.0)
[2023-01-23 07:09] LABS: Alanine Aminotransferase 34 U/L (6-35); Albumin Level 2.8 g/dL (3.5-5.1); Alkaline Phosphatase 100 U/L (38-126); Anion Gap 4 mmol/L (8-16); Aspartate Amino Transferase 54 U/L (14-36); Bilirubin,Total 0.6 mg/dL (0.2-1.3); Blood Urea Nitrogen 8 mg/dL (7-17); Calcium 9.2 mg/dL (8.4-10.2); Carbon Dioxide 28 mmol/L (22-30); Chloride 102 mmol/L (98-107); Estimated CRCL calculation 71 ml/min; Estimated Glomerular Filt Rate > 60; Glucose 91 mg/dL (65-110); Potassium 3.3 mmol/L (3.4-5.0); Sodium 134 mmol/L (137-145)
[2023-01-23] MEDS: amLODIPine BESYLATE 5 MG TABLET 10 MG PO (08:26)
[2023-01-23] MEDS: ENOXAPARIN 80 MG/0.8 ML SYRINGE 70 MG SUB-Q ×2 (08:26→20:25)
[2023-01-23] MEDS: HYDROcodone/acetaminophen (*CRX) 5-325 MG TABLET 1 TAB PO ×2 (12:31→17:43)
[2023-01-23] MEDS: ONDANSETRON INJ 4 MG/2 ML VIAL IV PUSH (13:55)
--- NOTE | 2023-01-23 14:41 | PM.IMPN ---
Progress Note: A&P Assessment and Plan (1) Sepsis: Code(s): A41.9 - Sepsis, unspecified organism Status: Acute Assessment and Plan: Present on admission with tachycardia, leukocytosis, and elevated lactic acid level in the setting of presumed postobstructive pneumonia. Urine is a bit abnormal though she is asymptomatic. Blood, sputum, and urine cultures pending. Continue antibiotic has ordered. Continue Zosyn as ordered leukocytosis continues to improve (2) Postobstructive pneumonia: Code(s): J18.9 - Pneumonia, unspecified organism Status: Acute Assessment and Plan: Continue Zosyn. Sputum culture ordered. Leukocytosis slowly improving (3) Mass of right lung: Code(s): R91.8 - Other nonspecific abnormal finding of lung field Status: Acute Assessment and Plan: Multiple ill-defined heterogeneous masses noted in the right lower lobe on CT of the abdomen and pelvis with widespread osseous metastatic disease and subcarinal and upper abdominal lymphadenopathy. Oncology and pulmonology consulted. Discussed with oncologist suggested tissue biopsy. Discussed with Radiology for forms biopsy of right chest wall bony lesion for further evaluation Underwent biopsy of left rib lesion 01/22/2023 (4) Lytic bone lesions on xray: Code(s): M89.9 - Disorder of bone, unspecified Status: Acute Assessment and Plan: Patient has been having pain, mainly in the right ribs since November. Analgesics as needed. (5) Pulmonary embolism: Code(s): I26.99 - Other pulmonary embolism without acute cor pulmonale Status: Acute Assessment and Plan: Continue Lovenox 1 milligram/kilogram b.i.d.. Resume (6) Left leg DVT: Code(s): I82.402 - Acute embolism and thrombosis of unspecified deep veins of left lower extremity Status: Acute Assessment and Plan: On anticoagulation as above. She does not have prescription coverage is however with cancer related DVT referred anticoagulation Lovenox and will plan to keep her on that at least in the initial phase (7) Elevated LFTs: Code(s): R79.89 - Other specified abnormal findings of blood chemistry Status: Acute Assessment and Plan: Fatty infiltration of the liver noted on imaging. Continue to monitor. (8) Hypertension: Code(s): I10 - Essential (primary) hypertension Status: Acute Assessment and Plan: Blood pressures were reviewed and they are stable. Continue amlodipine and monitor. (9) Anxiety: Code(s): F41.9 - Anxiety disorder, unspecified Status: Acute Assessment and Plan: Patient stopped taking clonazepam earlier this year. A bit anxious now, likely due to above findings. Declines the need for benzodiazepines at this time. (10) Abnormal brain CT: Code(s): R90.89 - Other abnormal findings on diagnostic imaging of central nervous system Status: Acute Assessment and Plan: Initial brain CT showed a possible hypoattenuating lesion as detailed above. Repeat CT showed no evidence of the lesion. Given lung findings and lytic lesions, brain MRI performed which revealed 5 mm ring-enhancing right parietal lobe lesion with mild surrounding vasogenic edema most consistent with small metastatic lesion. Several small focal areas of acute infarct in the left frontal and parietal lobes as well as questionable small focus of additional acute infarct in the left cerebellum. Mild background chronic white matter changes. Neurology consulted Discussed with Neurology 01/22/2023: Okay for anticoagulation Subjective Date/time seen: 01/23/23 14:41 Interval history: No overnight events. Hypoxic when oxygen tapered off still requiring 2 L oxygen. Denies any other complaint. Discussed anticoagulation with the patient. She does not have prescription coverage through her Medicare Review of Systems Review of Systems:
--- NOTE | 2023-01-23 18:55 | PM.PNPUL ---
Progress Note: A&P Assessment and Plan (1) Mass of right lung: Code(s): R91.8 - Other nonspecific abnormal finding of lung field Status: Acute Assessment and Plan: Patient with 15 pack year history of tobacco use, quit 1983, secondhand smoke exposure until 2020 and current daily marijuana exposure with a right lung mass, right lower lobe consolidation, multiple bone lytic lesions, Brain MRI with 5 mm ring-enhancing right parietal lobe lesion with mild surrounding vasogenic edema most consistent with a small metastatic lesion. I suspect the patient has metastatic lung cancer and the patient will have a bony lesion biopsied by Radiology later today. Oncology has been consulted. Patient has no clinical symptoms of a postobstructive bacterial pneumonia. She does have a leukocytosis which has improved with Zosyn, day 4 today. blood cultures are negative, urine with group B strep. From a pulmonary perspective I would treat the patient with antibiotics for total of 7 days. (2) Pulmonary embolism: Code(s): I26.99 - Other pulmonary embolism without acute cor pulmonale Status: Acute Assessment and Plan: Patient has left lower lobe and lingular PE on CT angiogram of the abdomen. She also has a left femoral, popliteal, gastrocnemius and a partial left posterior tibial thrombus. She was treated with Lovenox full dose and this is been held for her biopsy. She has been hemodynamically stable, her BNP was 333 and her echocardiogram shows no evidence of right heart strain. Patient also has a 5 mm ring-enhancing right parietal lobe lesion consistent with a small metastatic lesion and recommend neurologic consultation regarding the safety of anti coagulation. If it is felt that systemic anticoagulation is not warranted at this time the patient should be evaluated for an IVC filter. (3) Emphysema lung: Code(s): J43.9 - Emphysema, unspecified Status: Acute Assessment and Plan: Patient with 15 pack year history of tobacco use, quit 1983, secondhand smoke exposure until 2020 and current daily marijuana exposure. she has mild apical predominant paraseptal emphysema on her CT scan and she may have COPD. Prior to this current illness she had no respiratory limitations in her activity of daily living and at this time she has no evidence of a COPD exacerbation. Patient should be treated for her current DVT PE and presumed metastatic lung cancer and re-evaluated as an outpatient for ongoing symptoms and PFTs that may be consistent with COPD. She may benefit from a bronchodilator in the future. Time Spent With Patient Time: She appears stable from pulmonary perspective. I will sign off. Please recall if needed. Time with patient: less than 15 minutes Subjective Date/time seen: 01/23/23 18:55 Interval history: hospital follow up 01/23/23 72-year-old with a history of hypertension,? basal cell carcinoma of the left nose and right cheek area status post resection on 12/10/2017 with clear margins and no recurrence per the patient. She is seen in follow up for suspected metastatic lung cancer, had a biopsy of the 7th left rib expansile mass with results pending. She is feeling better compared to admission. Now on 2 L/minute. She is going to follow up with Dr Richey who treats her mother for CLL. --------- Patient presented to the emergency department on 01/20/2023 with 2 and half months of cough, decreased appetite, a fall with back pain and 2-3 weeks worsening shortness of breath and weakness.? Patient denied fever, chills, rigors, phlegm production, hemoptysis.? Patient was seen in the emergency department she was afebrile with a white blood cell count of 21.8, room air saturations 94%, BNP of 3000 hurt and
[2023-01-23 20:46] LABS: Mycoplasma IgM Antibody Titer 45 U/mL (<770)
[2023-01-23 21:30] LABS: Pneumococcal Antigen Urine Not Detected (Not Detected)
[2023-01-24 02:18] LABS: Legionella pneumophila Ag Ur Not Detected (Not Detected)
[2023-01-24] MEDS: HYDROcodone/acetaminophen (*CRX) 5-325 MG TABLET 1 TAB PO ×3 (04:38→19:56)
[2023-01-24] MEDS: PIPERACILLN/TAZ 3.375GM/NS50ML 3.375 GM/50 ML BAG IVPB ×4 (05:16→23:18)
[2023-01-24 06:00] VITALS: BP 95/73; PULSE 90; RESP 18; TEMP 36.5; O2SAT 85
[2023-01-24 07:15] LABS: Basophils Absolute Auto 0.1 K/mm3 (0.0-0.1); Basophils Percent Auto 0.3 % (0.2-1.2); Eosinophils Absolute Auto 0.2 K/mm3 (0-0.3); Hematocrit 27.5 % (37.0-47.0); Hemoglobin 8.2 g/dL (12.0-15.0); Immature Granulocyte Absolute 0.27 K/mm3 (0.00-0.031); Immature Granulocyte Percent A 1.6 % (0-0.5); Lymphocytes Absolute Auto 1.76 K/mm3 (0.9-3.2); Lymphocytes Percent Auto 10.7 % (18.3-44.2); Mean Corpuscular HGB Conc 29.8 g/dl (32-36); Mean Corpuscular Hemoglobin 25.3 pg (26-34); Mean Corpuscular Volume 84.9 fl (80-100); Mean Platelet Volume 9.3 fl (7.4-10.4); Monocytes Absolute Auto 1.6 K/mm3 (0.1-0.6); Monocytes Percent Auto 9.8 % (2.6-8.5); Neutrophils Absolute Auto 12.6 K/mm3 (1.3-6.7); Neutrophils Percent Auto 76.6 % (45.5-73.1); Platelet Count Result 565 k/mm3 (150-375); Red Blood Count 3.24 M/mm3 (4.2-5.4); Red Cell Distribution Width 16.7 % (11.5-14.5); White Blood Count 16.5 K/mm3 (4.5-10.0)
[2023-01-24 07:27] LABS: Alanine Aminotransferase 31 U/L (6-35); Albumin Level 2.7 g/dL (3.5-5.1); Alkaline Phosphatase 99 U/L (38-126); Anion Gap 4 mmol/L (8-16); Aspartate Amino Transferase 48 U/L (14-36); Bilirubin,Total 0.6 mg/dL (0.2-1.3); Blood Urea Nitrogen 7 mg/dL (7-17); Calcium 8.9 mg/dL (8.4-10.2); Carbon Dioxide 30 mmol/L (22-30); Chloride 99 mmol/L (98-107); Estimated CRCL calculation 71 ml/min; Estimated Glomerular Filt Rate > 60; Glucose 107 mg/dL (65-110); Potassium 3.4 mmol/L (3.4-5.0); Sodium 133 mmol/L (137-145)
[2023-01-24 08:15] VITALS: BP 97/67; PULSE 79; O2SAT 92
[2023-01-24] MEDS: ENOXAPARIN 80 MG/0.8 ML SYRINGE 70 MG SUB-Q ×2 (08:16→20:40)
[2023-01-24 08:26] VITALS: O2SAT 92
[2023-01-24 10:47] LABS: Anisocytosis 1+ (NORMAL); Hypochromasia 2+ (NORMAL); Platelet Estimate Increased (Adequate); Schistocytes None Seen (NORMAL)
[2023-01-24 14:00] VITALS: BP 106/74; PULSE 88; RESP 17; TEMP 36.3; O2SAT 96
--- NOTE | 2023-01-24 15:01 | PM.IMPN ---
Progress Note: A&P Assessment and Plan (1) Sepsis: Code(s): A41.9 - Sepsis, unspecified organism Status: Acute Assessment and Plan: Present on admission with tachycardia, leukocytosis, and elevated lactic acid level in the setting of presumed postobstructive pneumonia. Urine is a bit abnormal though she is asymptomatic. Blood, sputum, and urine cultures pending. Continue antibiotic has ordered. Continue Zosyn as ordered leukocytosis continues to improve (2) Postobstructive pneumonia: Code(s): J18.9 - Pneumonia, unspecified organism Status: Acute Assessment and Plan: Continue Zosyn. Sputum culture ordered. Leukocytosis slowly improving (3) Mass of right lung: Code(s): R91.8 - Other nonspecific abnormal finding of lung field Status: Acute Assessment and Plan: Multiple ill-defined heterogeneous masses noted in the right lower lobe on CT of the abdomen and pelvis with widespread osseous metastatic disease and subcarinal and upper abdominal lymphadenopathy. Oncology and pulmonology consulted. Discussed with oncologist suggested tissue biopsy. Discussed with Radiology for forms biopsy of right chest wall bony lesion for further evaluation Underwent biopsy of left rib lesion 01/22/2023 (4) Lytic bone lesions on xray: Code(s): M89.9 - Disorder of bone, unspecified Status: Acute Assessment and Plan: Patient has been having pain, mainly in the right ribs since November. Analgesics as needed. (5) Pulmonary embolism: Code(s): I26.99 - Other pulmonary embolism without acute cor pulmonale Status: Acute Assessment and Plan: Continue Lovenox 1 milligram/kilogram b.i.d.. Resume (6) Left leg DVT: Code(s): I82.402 - Acute embolism and thrombosis of unspecified deep veins of left lower extremity Status: Acute Assessment and Plan: On anticoagulation as above. She does not have prescription coverage is however with cancer related DVT referred anticoagulation Lovenox and will plan to keep her on that at least in the initial phase . She is okay with Lovenox (7) Elevated LFTs: Code(s): R79.89 - Other specified abnormal findings of blood chemistry Status: Acute Assessment and Plan: Fatty infiltration of the liver noted on imaging. Continue to monitor. (8) Hypertension: Code(s): I10 - Essential (primary) hypertension Status: Acute Assessment and Plan: Blood pressures were reviewed and they are stable. Continue amlodipine and monitor. (9) Anxiety: Code(s): F41.9 - Anxiety disorder, unspecified Status: Acute Assessment and Plan: Patient stopped taking clonazepam earlier this year. A bit anxious now, likely due to above findings. Declines the need for benzodiazepines at this time. (10) Abnormal brain CT: Code(s): R90.89 - Other abnormal findings on diagnostic imaging of central nervous system Status: Acute Assessment and Plan: Initial brain CT showed a possible hypoattenuating lesion as detailed above. Repeat CT showed no evidence of the lesion. Given lung findings and lytic lesions, brain MRI performed which revealed 5 mm ring-enhancing right parietal lobe lesion with mild surrounding vasogenic edema most consistent with small metastatic lesion. Several small focal areas of acute infarct in the left frontal and parietal lobes as well as questionable small focus of additional acute infarct in the left cerebellum. Mild background chronic white matter changes. Neurology consulted Discussed with Neurology 01/22/2023: Okay for anticoagulation Subjective Date/time seen: 01/24/23 15:01 Interval history: feels better. Still hypoxic and requiring oxygen via nasal cannula. Discussed anticoagulation with potentially Lovenox at discharge. Minimal cough. Review of Systems Review of Systems: All systems reviewed & are unremarkab
[2023-01-24] MEDS: MORPHINE SULFATE (*CRX) 4 MG/ML INJ 2 MG IV PUSH (20:44)
[2023-01-24 21:40] VITALS: BP 108/81; PULSE 91; RESP 20; TEMP 36.3; O2SAT 94
[2023-01-25] MEDS: PIPERACILLN/TAZ 3.375GM/NS50ML 3.375 GM/50 ML BAG IVPB ×2 (05:15→13:03)
[2023-01-25 05:51] VITALS: BP 96/66; PULSE 84; RESP 16; TEMP 36.6; O2SAT 92
[2023-01-25 07:24] LABS: Basophils Absolute Auto 0.1 K/mm3 (0.0-0.1); Basophils Percent Auto 0.4 % (0.2-1.2); Eosinophils Absolute Auto 0.2 K/mm3 (0-0.3); Hematocrit 28.6 % (37.0-47.0); Hemoglobin 8.5 g/dL (12.0-15.0); Immature Granulocyte Absolute 0.27 K/mm3 (0.00-0.031); Immature Granulocyte Percent A 1.6 % (0-0.5); Lymphocytes Absolute Auto 2.02 K/mm3 (0.9-3.2); Lymphocytes Percent Auto 11.7 % (18.3-44.2); Mean Corpuscular HGB Conc 29.7 g/dl (32-36); Mean Corpuscular Volume 84.1 fl (80-100); Mean Platelet Volume 9.2 fl (7.4-10.4); Monocytes Absolute Auto 1.7 K/mm3 (0.1-0.6); Neutrophils Percent Auto 75.3 % (45.5-73.1); Platelet Count Result 599 k/mm3 (150-375); Red Cell Distribution Width 17.2 % (11.5-14.5); White Blood Count 17.2 K/mm3 (4.5-10.0)
[2023-01-25 07:52] LABS: Alanine Aminotransferase 30 U/L (6-35); Albumin Level 2.8 g/dL (3.5-5.1); Alkaline Phosphatase 102 U/L (38-126); Anion Gap 4 mmol/L (8-16); Aspartate Amino Transferase 55 U/L (14-36); Bilirubin,Total 0.5 mg/dL (0.2-1.3); Blood Urea Nitrogen 7 mg/dL (7-17); Calcium 9.2 mg/dL (8.4-10.2); Carbon Dioxide 32 mmol/L (22-30); Chloride 100 mmol/L (98-107); Estimated CRCL calculation 71 ml/min; Estimated Glomerular Filt Rate > 60; Glucose 98 mg/dL (65-110); Potassium 3.2 mmol/L (3.4-5.0); Sodium 136 mmol/L (137-145)
[2023-01-25 08:40] VITALS: O2SAT 92
[2023-01-25] MEDS: MORPHINE SULFATE (*CRX) 4 MG/ML INJ 2 MG IV PUSH ×2 (08:43→13:03)
[2023-01-25] MEDS: amLODIPine BESYLATE 5 MG TABLET 10 MG PO (08:44)
[2023-01-25] MEDS: ENOXAPARIN 80 MG/0.8 ML SYRINGE 70 MG SUB-Q ×2 (08:44→19:59)
[2023-01-25] MEDS: POTASSIUM CHLORIDE 20 MEQ TABLET 40 MEQ PO (13:03)
[2023-01-25 14:00] VITALS: BP 113/72; PULSE 95; RESP 20; TEMP 36.1; O2SAT 92
--- NOTE | 2023-01-25 14:22 | PM.IMPN ---
Progress Note: A&P Assessment and Plan (1) Sepsis: Code(s): A41.9 - Sepsis, unspecified organism Status: Acute Assessment and Plan: Present on admission with tachycardia, leukocytosis, and elevated lactic acid level in the setting of presumed postobstructive pneumonia. Urine is a bit abnormal though she is asymptomatic. Blood, sputum, and urine cultures pending. Continue antibiotic has ordered. Continue Zosyn as ordered Leukocytosis worsening Check C diff Start oral vancomycin Hold Zosyn (2) Postobstructive pneumonia: Code(s): J18.9 - Pneumonia, unspecified organism Status: Acute Assessment and Plan: Continue Zosyn. Sputum culture ordered. Leukocytosis now worsened. Could be related to diarrhea (3) Mass of right lung: Code(s): R91.8 - Other nonspecific abnormal finding of lung field Status: Acute Assessment and Plan: Multiple ill-defined heterogeneous masses noted in the right lower lobe on CT of the abdomen and pelvis with widespread osseous metastatic disease and subcarinal and upper abdominal lymphadenopathy. Oncology and pulmonology consulted. Discussed with oncologist suggested tissue biopsy. Discussed with Radiology for forms biopsy of right chest wall bony lesion for further evaluation Underwent biopsy of left rib lesion 01/22/2023 (4) Lytic bone lesions on xray: Code(s): M89.9 - Disorder of bone, unspecified Status: Acute Assessment and Plan: Patient has been having pain, mainly in the right ribs since November. Analgesics as needed. (5) Pulmonary embolism: Code(s): I26.99 - Other pulmonary embolism without acute cor pulmonale Status: Acute Assessment and Plan: Continue Lovenox 1 milligram/kilogram b.i.d.. Resume (6) Left leg DVT: Code(s): I82.402 - Acute embolism and thrombosis of unspecified deep veins of left lower extremity Status: Acute Assessment and Plan: On anticoagulation as above. She does not have prescription coverage is however with cancer related DVT referred anticoagulation Lovenox and will plan to keep her on that at least in the initial phase . She is okay with Lovenox (7) Elevated LFTs: Code(s): R79.89 - Other specified abnormal findings of blood chemistry Status: Acute Assessment and Plan: Fatty infiltration of the liver noted on imaging. Continue to monitor. (8) Hypertension: Code(s): I10 - Essential (primary) hypertension Status: Acute Assessment and Plan: Blood pressures were reviewed and they are stable. Continue amlodipine and monitor. Will stop amlodipine due to lowish blood pressure (9) Anxiety: Code(s): F41.9 - Anxiety disorder, unspecified Status: Acute Assessment and Plan: Patient stopped taking clonazepam earlier this year. A bit anxious now, likely due to above findings. Declines the need for benzodiazepines at this time. (10) Abnormal brain CT: Code(s): R90.89 - Other abnormal findings on diagnostic imaging of central nervous system Status: Acute Assessment and Plan: Initial brain CT showed a possible hypoattenuating lesion as detailed above. Repeat CT showed no evidence of the lesion. Given lung findings and lytic lesions, brain MRI performed which revealed 5 mm ring-enhancing right parietal lobe lesion with mild surrounding vasogenic edema most consistent with small metastatic lesion. Several small focal areas of acute infarct in the left frontal and parietal lobes as well as questionable small focus of additional acute infarct in the left cerebellum. Mild background chronic white matter changes. Neurology consulted Discussed with Neurology 01/22/2023: Okay for anticoagulation Subjective Date/time seen: 01/25/23 14:22 Interval history: Patient reports 2 loose stool. Are white cell count is going up. Blood pressure is lower. Breathing barnes she is
[2023-01-25] MEDS: HYDROcodone/acetaminophen (*CRX) 10-325 MG TABLET 1 TAB PO (15:17)
[2023-01-25] MEDS: VANCOMYCIN ORAL 125 MG/2.5 ML SYRUP PO (17:10)
[2023-01-25 19:35] VITALS: O2SAT 92
[2023-01-25 21:30] VITALS: BP 105/67; PULSE 64; RESP 18; TEMP 36.8; O2SAT 92
[2023-01-26] VITALS (11 sets, daily range): BP systolic 118–130; BP diastolic 82–83; PULSE 88–112; RESP 18; TEMP 36.1; O2SAT 85–94
[2023-01-26] MEDS: VANCOMYCIN ORAL 125 MG/2.5 ML SYRUP PO ×3 (00:26→12:28)
[2023-01-26] MEDS: HYDROcodone/acetaminophen (*CRX) 10-325 MG TABLET 1 TAB PO ×3 (00:26→15:41)
[2023-01-26 02:43] LABS: Toxigenic C. Diff NEGATIVE (NEGATIVE)
[2023-01-26 06:34] LABS: Basophils Absolute Auto 0.1 K/mm3 (0.0-0.1); Basophils Percent Auto 0.4 % (0.2-1.2); Eosinophils Absolute Auto 0.2 K/mm3 (0-0.3); Eosinophils Percent Auto 1.2 % (0-4.4); Hematocrit 27.4 % (37.0-47.0); Hemoglobin 8.2 g/dL (12.0-15.0); Immature Granulocyte Absolute 0.35 K/mm3 (0.00-0.031); Immature Granulocyte Percent A 2.2 % (0-0.5); Lymphocytes Absolute Auto 1.91 K/mm3 (0.9-3.2); Mean Corpuscular HGB Conc 29.9 g/dl (32-36); Mean Corpuscular Hemoglobin 25.9 pg (26-34); Mean Corpuscular Volume 86.7 fl (80-100); Mean Platelet Volume 9.2 fl (7.4-10.4); Monocytes Absolute Auto 1.5 K/mm3 (0.1-0.6); Monocytes Percent Auto 9.7 % (2.6-8.5); Neutrophils Absolute Auto 11.9 K/mm3 (1.3-6.7); Neutrophils Percent Auto 74.5 % (45.5-73.1); Platelet Count Result 542 k/mm3 (150-375); Red Blood Count 3.16 M/mm3 (4.2-5.4); Red Cell Distribution Width 17.4 % (11.5-14.5)
[2023-01-26 06:47] LABS: Alanine Aminotransferase 29 U/L (6-35); Albumin Level 2.8 g/dL (3.5-5.1); Alkaline Phosphatase 104 U/L (38-126); Anion Gap 1 mmol/L (8-16); Aspartate Amino Transferase 55 U/L (14-36); Bilirubin,Total 0.4 mg/dL (0.2-1.3); Blood Urea Nitrogen 6 mg/dL (7-17); Calcium 8.8 mg/dL (8.4-10.2); Carbon Dioxide 32 mmol/L (22-30); Chloride 100 mmol/L (98-107); Estimated CRCL calculation 84 ml/min; Estimated Glomerular Filt Rate > 60; Glucose 106 mg/dL (65-110); Magnesium 1.9 mg/dL (1.6-2.3); Potassium 3.8 mmol/L (3.4-5.0); Sodium 133 mmol/L (137-145)
[2023-01-26 07:38] LABS: Anisocytosis 1+ (NORMAL); Hypochromasia 1+ (NORMAL); Platelet Estimate Increased (Adequate); Schistocytes None Seen (NORMAL)
[2023-01-26] MEDS: ENOXAPARIN 80 MG/0.8 ML SYRINGE 70 MG SUB-Q (08:54)
--- NOTE | 2023-01-26 10:07 | PCRCNOTE ---
Home O2 eval complete. Patient does not require Home O2 at this time. RN notified.
--- NOTE | 2023-01-26 14:39 | PM.DS ---
DS: Admitting Diagnosis Discharge Date 01/26/2023 Admitting Diagnosis Shortness of breath back pain DS: Discharge Diagnosis Discharge Diagnosis (1) Sepsis: Code(s): A41.9 - Sepsis, unspecified organism Status: Acute (2) Postobstructive pneumonia: Code(s): J18.9 - Pneumonia, unspecified organism Status: Acute (3) Mass of right lung: Code(s): R91.8 - Other nonspecific abnormal finding of lung field Status: Acute (4) Lytic bone lesions on xray: Code(s): M89.9 - Disorder of bone, unspecified Status: Acute (5) Pulmonary embolism: Code(s): I26.99 - Other pulmonary embolism without acute cor pulmonale Status: Acute (6) Left leg DVT: Code(s): I82.402 - Acute embolism and thrombosis of unspecified deep veins of left lower extremity Status: Acute (7) Elevated LFTs: Code(s): R79.89 - Other specified abnormal findings of blood chemistry Status: Acute (8) Hypertension: Code(s): I10 - Essential (primary) hypertension Status: Acute (9) Anxiety: Code(s): F41.9 - Anxiety disorder, unspecified Status: Acute (10) Abnormal brain CT: Code(s): R90.89 - Other abnormal findings on diagnostic imaging of central nervous system Status: Acute DS: Summary Hospital Course Hospital Course: # sepsis: Present on admission with tachycardia, leukocytosis, and elevated lactic acid level in the setting of presumed postobstructive pneumonia. Urine is a bit abnormal though she is asymptomatic. Blood, sputum, and urine cultures pending.? Continue antibiotic has ordered.? Continue Zosyn as ordered Leukocytosis worsening. C diff was checked due to diarrhea which came back negative Completed 5 days course of Zosyn. Mild leukocytosis still persists but remains stable # postobstructive pneumonia: Continue Zosyn.? Sputum culture ordered.? Leukocytosis mild still present the time discharge. Follow-up as an outpatient basis # mass of right lung: Multiple ill-defined heterogeneous masses noted in the right lower lobe on CT of the abdomen and pelvis with widespread osseous metastatic disease and subcarinal and upper abdominal lymphadenopathy. Oncology and pulmonology consulted. Discussed with oncologist suggested tissue biopsy.? Discussed with Radiology for forms biopsy of right chest wall bony lesion for further evaluation Underwent biopsy of left rib lesion 01/22/2023 This needs to be followed up as an outpatient basis Suspected metastatic lung cancer # lytic bone lesions on x-ray: Patient has been having pain, mainly in the right ribs since November. Analgesics as needed. X-ray pelvis and spine also shows degenerative disc disease # pulmonary embolism: CT abdomen pelvis with pulmonary emboli proximal segmental branches of the lingula and left lower lobe. Along with DVT of the left superficial femoral vein Continue Lovenox 1 milligram/kilogram b.i.d..? Resume # hypoxia: Due to PE mass in the lung. Still require oxygen by the time of discharge. Home oxygen evaluation were performed at the time of discharge. Oxygen was arranged for home # left leg DVT: On anticoagulation as above. She does not have prescription coverage is however with cancer related DVT referred anticoagulation Lovenox and will plan to keep her on that at least in the initial phase .? She is okay with Lovenox. Venous duplex with thrombus in the left femoral popliteal and gastrocnemius vein and partial thrombosis of the left posterior tibial vein. # elevated LFTs: Fatty infiltration of the liver noted on imaging. Continue to monitor. # hypertension: Blood pressures were reviewed and they are stable. Patient was continued on amlodipine and monitor.? As blood pressure was lowish stop amlodipine at discharge # anxiety disorder: Patient stopped taking clonazepam earlier this year. A bit anxious now, likely due to above findings. Declines the need for benzodiazepines at thi
--- NOTE | 2023-01-26 15:32 | HOMEO2EVAL ---
Evaluation was performed at [facility] Home Oxygen Evaluation RC: Home Oxygen (O2) Evaluation Start: 01/26/23 08:25 Freq: ONCE Status: Active Protocol: RPE Activity Type Activity Date Activity User E-sign Co-sign Detail Recorded Client Recorded Date Recorded By Document 01/26/23 09:30 [email or web address] 01/26/23 10:07 PKH Document 01/26/23 09:45 [email or web address] 01/26/23 10:07 PKH Document 01/26/23 09:50 [email or web address] [email or web address] 01/26/23 10:07 PKH Document 01/26/23 14:55 [email or web address] [email or web address] 01/26/23 15:32 PKH Document 01/26/23 15:00 [email or web address] [email or web address] 01/26/23 15:32 PKH Document 01/26/23 15:05 [email or web address] [email or web address] 01/26/23 15:32 PKH Document 01/26/23 15:20 [email or web address] [email or web address] 01/26/23 15:32 PKH Document 01/26/23 15:25 [email or web address] [email or web address] 01/26/23 15:32 PKH 01/26/23 01/26/23 01/26/23 09:30 09:45 09:50 Home O2 Evaluation [Oxygen] -Test Phase Resting Exercise Resting -Oxygen Delivery Room Air Room Air Room Air -Oxygen Flow Rate (L/min) [Pulse Oximetry] -Pulse Oximetry (90-100 %) 94 91 92 [Pulse Rate] -Pulse Rate (60-100 beats/min) 88 95 90 [Evaluation] -Activity Tolerance Good [Charges] -Treatment Charges O2 Evaluation - Inpatient 01/26/23 01/26/23 01/26/23 14:55 15:00 15:05 Home O2 Evaluation [Oxygen] -Test Phase Resting Resting Resting -Oxygen Delivery Room Air Nasal Cannula Nasal Cannula -Oxygen Flow Rate (L/min) 1 2 [Pulse Oximetry] -Pulse Oximetry (90-100 %) 87 L 87 L 90 [Pulse Rate] -Pulse Rate (60-100 beats/min) 107 H 111 H 112 H [Evaluation] -Activity Tolerance [Charges] -Treatment Charges 01/26/23 01/26/23 15:20 15:25 Home O2 Evaluation [Oxygen] -Test Phase Exercise Resting -Oxygen Delivery Nasal Cannula Nasal Cannula -Oxygen Flow Rate (L/min) 2 2 [Pulse Oximetry] -Pulse Oximetry (90-100 %) 90 91 [Pulse Rate] -Pulse Rate (60-100 beats/min) 112 H 107 H [Evaluation] -Activity Tolerance [Charges] -Treatment Charges
--- NOTE | 2023-01-26 15:46 | PCRCNOTE ---
HOME O2 EVAL COMPLETED. pATIENT REQUIRES 2LPM WITH REST AND ACTIVITY. RN NOTIFIED.
== END 2023-01-26 17:20 | disposition home or self-care (01) | DRG 853 ==
LOC: ANHED 15:33 → ANH3MEDSUR 20:29
PROVIDERS: Physician Assistant; Admitting Provider Internal Medicine; Emergency Provider Physician Assistant; PCP Family Medicine; Visit Provider Internal Medicine
DX: A41.9 Sepsis, unspecified organism (principal); I26.99 Other pulmonary embolism without acute cor pulmonale; J18.9 Pneumonia, unspecified organism; I82.412 Acute embolism and thrombosis of left femoral vein; R91.8 Other nonspecific abnormal finding of lung field; M89.9 Disorder of bone, unspecified; R09.02 Hypoxemia; I10 Essential (primary) hypertension; F41.9 Anxiety disorder, unspecified; J43.9 Emphysema, unspecified; G93.9 Disorder of brain, unspecified; Z20.822 Contact with and (suspected) exposure to COVID-19; Z79.899 Other long term (current) drug therapy; Z87.891 Personal history of nicotine dependence
CPT/HCPCS: 20220; 36415; 70450; 70553; 71045; 71046; 71250; 72100; 73521; 74177; 76942; 80053; 80074; 81001; 82948; 83605; 83690; 83735; 83880; 84436; 84439; 84443; 84480; 85025; 85027; 85610; 85730; 86738; 87040; 87077; 87086; 87088; 87449; 87493; 87636; 87899; 88307; 88311; 88342; 93005; 93306; 93970; 94618; 96361; 96365; 96366; 96367; 96372; 96375; 96376; 99285; A9270; A9577; G0378; J0456; J0696; J1642; J1650; J2270; J2405; J2543; J7030; J7040; J7050; Q9967

== ENCOUNTER 2023-01-30 15:24 | Outpatient (CLI) | payer MEDICARE, SELFPAY ==
[2023-01-30 15:45] LABS: Hematocrit 31.5 % (37.0-47.0); Hemoglobin 9.4 g/dL (12.0-15.0); Mean Corpuscular HGB Conc 29.8 g/dl (32-36); Mean Corpuscular Hemoglobin 25.5 pg (26-34); Mean Corpuscular Volume 85.4 fl (80-100); Mean Platelet Volume 8.9 fl (7.4-10.4); Platelet Count Result 681 k/mm3 (150-375); Red Blood Count 3.69 M/mm3 (4.2-5.4); Red Cell Distribution Width 17.6 % (11.5-14.5); White Blood Count 18.2 K/mm3 (4.5-10.0)
[2023-01-30 15:53] LABS: Band Neutrophils Percent 1 % (0-6); Hypochromasia 2+ (NORMAL); Lymphocytes Absolute Manual 3.09 K/mm3 (1.1-4.5); Monocytes Absolute Manual 1.27 K/mm3 (0.1-0.90); Monocytes Percent Manual 7 % (3-9); Neutrophils Absolute Manual 13.83 K/mm3 (1.7-7.2); Neutrophils Percent Manual 75 % (46-73); Nucleated Red Blood Cells 1 %; Platelet Estimate Increased (Adequate); Schistocytes None Seen (NORMAL); Total Cells Counted 100
[2023-01-30 15:54] LABS: Atypical Lymphocytes Present
[2023-01-30 16:14] LABS: Iron 18 ug/dL (37-170)
[2023-01-30 16:16] LABS: Alanine Aminotransferase 25 U/L (6-35); Albumin Level 3.3 g/dL (3.5-5.1); Alkaline Phosphatase 130 U/L (38-126); Anion Gap 8 mmol/L (8-16); Aspartate Amino Transferase 45 U/L (14-36); Bilirubin,Total 0.5 mg/dL (0.2-1.3); Blood Urea Nitrogen 7 mg/dL (7-17); Calcium 10.7 mg/dL (8.4-10.2); Carbon Dioxide 32 mmol/L (22-30); Chloride 94 mmol/L (98-107); Estimated Glomerular Filt Rate > 60; Glucose 104 mg/dL (65-110); Potassium 3.5 mmol/L (3.4-5.0); Sodium 134 mmol/L (137-145)
[2023-01-30 16:24] LABS: Percent Iron Saturation 9 % (20-50)
[2023-01-30 17:10] LABS: Vitamin B12 > 1000.0 pg/mL (239-931)
== END 2023-01-30 15:25 | disposition home or self-care (01) ==
LOC: ANHLAB 15:27
PROVIDERS: PCP Family Medicine; Visit Provider Internal Medicine Hematology & Oncology
DX: C34.90 Malignant neoplasm of unspecified part of unspecified bronchus or lung (principal)
CPT/HCPCS: 36415; 80053; 82607; 82728; 83540; 83550; 85025

== ENCOUNTER 2023-02-05 08:46 | Outpatient (CLI) | payer MEDICARE, SELFPAY ==
--- NOTE | ~2023-02-05 | NM_ITS ---
EXAMINATION: NM bone scan whole body DATE: 02/05/2023 11:35 INDICATION: Malignant neoplasm of the lung TECHNIQUE: 24.7 mCi Tc-99m HDP was administered intravenously. Delayed whole-body scintigrams were o btained. COMPARISON: CT chest and CT abdomen and pelvis, both dated 01/20/2023 FINDINGS: There are multiple foci of abnormal increased uptake involving multiple bilateral ribs, the sternum, bilateral scapulae, pelvis, proximal femur and multiple lesions in the spine consistent with widespre ad osseous metastatic disease. IMPRESSION: 1. Widespread osseous metastatic disease. Reviewed, dictated and finalized at location A.
== END 2023-02-05 08:47 | disposition home or self-care (01) ==
LOC: ANHIMG 08:48
PROVIDERS: PCP Family Medicine; Visit Provider Internal Medicine Hematology & Oncology
DX: C34.90 Malignant neoplasm of unspecified part of unspecified bronchus or lung (principal); C79.51 Secondary malignant neoplasm of bone
CPT/HCPCS: 78306; A9503

== ENCOUNTER 2023-02-09 21:11 | Inpatient (IN) | payer MEDICARE, SELFPAY ==
[2023-02-05 15:08] VITALS: BMI 23.5
--- NOTE | 2023-02-05 15:17 | PC.NURSE ---
Report to the Outpatient Waiting Room, entrance under the green pavilion located off [facility], at time __1000 on date __02/12/23 . Planned Procedure Time: ___1200 . Time changes happen often and if your time is changed the preop area will call you the afternoon before. - You and your visitor will be asked to self-screen and do not enter if you have any COVID symptoms. - A mask is optional within the hospital at this time. Patients may have clear liquids (water, carbonated beverages, clear teas, apple juice) until 3 hours prior to surgery (0900 AM) with a maximum of 20 ounces. - No food from midnight until time of surgery - Infants may have breast milk until 4 hours before surgery, formula 6 hours prior to surgery. - Children will be allowed to drink immediately following surgery. If applicable, please bring a bottle or sippy cup to assist with drinking. Juice, water, soda, and popsicles are readily available. For infants on formula, please bring formula the day of surgery. Pacifiers are allowed. Take the following medications with a SIP of water the morning of surgery: _DEXAMETHASONE, LEVETIRACETAM, PAIN PILL & INHALER IF NEEDED__ DO NOT STOP ANY OF YOUR OTHER PRESCRIPTION MEDICATIONS PRIOR TO SURGERY ?EXCEPT THE FOLLOWING Medications to discontinue - _LOVENOX PER DR. SOTO'S INSTRUCTIONS_ Date to take last dose Please no make-up, nail macedonian, hairspray, perfume, deodorant, or body powder the day of surgery. No jewelry (including any body piercings) or valuables the day of surgery, leave them at home. Please take a shower or bath the night before, or the morning of, surgery with an antibacterial soap. Wear comfortable, loose fitting clothing. Children are encouraged to wear pajamas. - Jewelry must be removed prior to entering the operating room. Rings and piercings that are not removed may be cut off. - The hospital will not accept responsibility for valuables. - Please leave all valuables, including medications, at home the day of surgery. If you are going home after surgery, a licensed van driver must drive you home. - NO public transportation without another adult if you receive anesthesia. - We recommend that an adult stay with you for 24 hours following discharge. - We also recommend that you do not drive, make important decision, drink alcoholic beverages, or take any drugs that were not prescribed by your health care provider for at least 24 hours after your discharge time. For Pediatric surgeries, we recommend two adults accompany the child home. Follow any additional instructions given to you from your surgeon. If you or anyone in your household have experienced Covid symptoms in the past week, please notify your surgeon or the nurse liaison at the phone number below for possible testing. Telephone instructions given to _PATIENT_and asked if any additional questions and then verbalized understanding. Patient advised to call surgeon office or pre surgery nurse liaison [phone] if any additional questions.
--- NOTE | ~2023-02-09 | CT_ITS ---
EXAMINATION: CT brain wo con DATE: 02/13/2023 09:26 INDICATION: Cerebral metastatic disease. TECHNIQUE: Computed tomography (CT) of the head was performed without intravenous contrast. The mA wa s adjusted according to patient size. Iterative reconstruction technique was employed. The dose-lengt h product was 983.67 mGy-cm. COMPARISON: Head CT 01/20/2023, brain MRI 01/21/2023 FINDINGS: There are scattered areas of low attenuation in the cerebral white matter, which is within normal limits for the patient's age. There is a small infarct in the right cerebellum. There is no in tracranial hemorrhage or abnormal intracranial mass lesion. The ventricles are normal in size. There is mild mucosal thickening in the paranasal sinuses. The orbits are normal. The mastoid air cells are normal. IMPRESSION: 1. Small infarct in the right cerebellum, new from 01/21/23. 2. The right parietal metastatic disease seen by MR is occult by CT. Reviewed, dictated and finalized at location A.
--- NOTE | ~2023-02-09 | XR_ITS ---
XR chest port-a-cath/central, XR fl guide central line place 02/12/2023 13:36 (accession [id number]), 02/12/2023 13:37 (accession [id number]) Indication: Portacatheter placement Procedure: Single fluoroscopic view of the chest. Post portacatheter placement AP portable chest Comparison: Comparison to multiple prior studies sequentially, with oldest reviewed study dated 01/20. Findings: There is a left subclavian perez catheter, tip in the SVC. Cardiomegaly. Shallow inspiratio n. There is bilateral airspace disease which may represent atelectasis, pneumonia or edema. No pneumo thorax. No acute osseous abnormality. Impression: 1: Bilateral airspace disease may represent atelectasis, pneumonia and/or edema. Reviewed, dictated and finalized at location L.
--- NOTE | ~2023-02-09 | XR_ITS ---
AP and lateral views of the left hip Clinical history: Pain Findings: No acute fracture or dislocation is seen. Osseous alignment is anatomic. The left hip joint and visualized left SI joint are preserved. Soft tissues are unremarkable. Impression: No significant abnormality is seen. Reviewed, dictated and finalized at location . Impression: No significant abnormality is seen.
--- NOTE | ~2023-02-09 | XR_ITS ---
AP view of the pelvis and AP and lateral views of the right hip Clinical history: Pain Findings: No acute fracture or dislocation is seen. Osseous alignment is anatomic. There is mild to m oderate degenerative change of the right hip joint, with osteophyte formation and mild sclerotic gregory ge. Left hip joint space is preserved. Soft tissues are unremarkable. Impression: Mild to moderate osteoarthritis of the right hip joint. Reviewed, dictated and finalized at location M. Impression: Mild to moderate osteoarthritis of the right hip joint.
--- NOTE | ~2023-02-09 | XR_ITS ---
EXAMINATION: XR chest 1V portable Exam Date/Time: 02/09/2023 22:45 CDT HISTORY: h/o lung ca, worsening pain Comparison: 01/22/2023; CT chest 01/20/2023. RESULT: Lines, tubes, and devices: None. Lungs and pleura: The patient is rotated towards the right. Senescent changes. Masslike right infrahi lar, medial lower lung, and basilar opacity. Right hemidiaphragm elevation. Right costophrenic angle blunting. Left basilar scar/atelectasis. Cardiomediastinal silhouette: Stable. Other: No acute osseous or upper abdominal finding. IMPRESSION: Right infrahilar/medial basilar mass with lower lung atelectasis/consolidation. Small right pleural e ffusion. Reviewed, dictated and finalized at location K. IMPRESSION: Right infrahilar/medial basilar mass with lower lung atelectasis/consolidation. Small right pleural effusion.
--- NOTE | ~2023-02-09 | XR_ITS ---
XR chest port-a-cath/central, XR fl guide central line place 02/12/2023 13:36 (accession [id number]), 02/12/2023 13:37 (accession [id number]) Indication: Portacatheter placement Procedure: Single fluoroscopic view of the chest. Post portacatheter placement AP portable chest Comparison: Comparison to multiple prior studies sequentially, with oldest reviewed study dated 01/20. Findings: There is a left subclavian perez catheter, tip in the SVC. Cardiomegaly. Shallow inspiratio n. There is bilateral airspace disease which may represent atelectasis, pneumonia or edema. No pneumo thorax. No acute osseous abnormality. Impression: 1: Bilateral airspace disease may represent atelectasis, pneumonia and/or edema. Reviewed, dictated and finalized at [facility]. Impression: 1: Bilateral airspace disease may represent atelectasis, pneumonia and/or edema . Impression: 1: Bilateral airspace disease may represent atelectasis, pneumonia and/or edema .
[2023-02-09 21:14] VITALS: BP 119/86; PULSE 92; RESP 16; TEMP 36.5; O2SAT 93
[2023-02-09] MEDS: HYDROmorphone HCL INJ (*CRX) 1 MG/ML SYR 0.5 MG IV PUSH (23:14)
[2023-02-09 23:19] LABS: Hematocrit 35.9 % (37.0-47.0); Hemoglobin 10.7 g/dL (12.0-15.0); Mean Corpuscular HGB Conc 29.8 g/dl (32-36); Mean Corpuscular Hemoglobin 25.4 pg (26-34); Mean Corpuscular Volume 85.1 fl (80-100); Mean Platelet Volume 9.6 fl (7.4-10.4); Platelet Count Result 287 k/mm3 (150-375); Red Blood Count 4.22 M/mm3 (4.2-5.4); Red Cell Distribution Width 19.1 % (11.5-14.5); White Blood Count 30.7 K/mm3 (4.5-10.0)
[2023-02-09 23:32] LABS: Anion Gap 9 mmol/L (8-16); Blood Urea Nitrogen 20 mg/dL (7-17); Calcium 11.1 mg/dL (8.4-10.2); Carbon Dioxide 28 mmol/L (22-30); Chloride 100 mmol/L (98-107); Estimated CRCL calculation 71 ml/min; Estimated Glomerular Filt Rate > 60; Glucose 124 mg/dL (65-110); Potassium 4.2 mmol/L (3.4-5.0); Sodium 137 mmol/L (137-145)
[2023-02-09 23:38] LABS: Band Neutrophils Percent 5 % (0-6); Lymphocytes Absolute Manual 3.37 K/mm3 (1.1-4.5); Monocytes Absolute Manual 1.22 K/mm3 (0.1-0.90); Monocytes Percent Manual 4 % (3-9); Neutrophils Absolute Manual 26.09 K/mm3 (1.7-7.2); Neutrophils Percent Manual 80 % (46-73); Platelet Estimate Adequate (Adequate); Total Cells Counted 100
[2023-02-09 23:39] LABS: Anisocytosis 1+ (NORMAL); Large Platelets Present; Schistocytes None Seen (NORMAL); Smudge Cells PRESENT
[2023-02-09 23:41] LABS: NT Pro B Type Natriuretic Pept 462 pg/mL (19.9-100)
[2023-02-10] VITALS (8 sets, daily range): BP systolic 104–135; BP diastolic 73–85; PULSE 77–89; RESP 17–20; TEMP 35.8–36.5; O2SAT 87–96; BMI 23.4
[2023-02-10] MEDS: HYDROmorphone HCL INJ (*CRX) 1 MG/ML SYR 0.5 MG IV PUSH ×3 (00:59→23:48)
--- NOTE | 2023-02-10 01:05 | ED.GENADULT ---
HPI - General Adult General Chief complaint: Unspecified Stated complaint: pain all over Time Seen by Provider: 02/09/23 22:44 Related Data Home Medications Medication Instructions Recorded Confirmed dexamethasone 4 mg tablet 4 mg BID 02/05/23 02/05/23 levetiracetam 500 mg tablet 500 mg PO BID 02/05/23 02/05/23 Allergies Allergy/AdvReac Type Severity Reaction Status Date / Time No Known Allergies Allergy Verified 02/09/23 21:18 [facility] Past Medical History Medical History (Updated 02/06/23 @ 09:33 by Helena Davidson RN) Anxiety Hypertension Surgical History Surgical History (Updated 01/21/23 @ 13:14 by Marcelo Mcmahon MD) Status post surgical removal of malignant neoplasm of skin Family History Family History Mother Family history of malignant neoplasm Other Family history of congenital heart disease Social History Social History (Updated 01/20/23 @ 23:15 by Jessica Tilley PA-C) Social History: Surrogate medical decision maker: Aubrey Donaldson, daughter. Code status: Full code. Smoking packs per day: 0.75 Smoking cigarettes per day: 15.0 Years smoked: 18 Smoking pack-years: 13.50 Smoking status: Former smoker Tobacco type: cigarettes Smoking end date: 11/02/84 Additional smoking assessment comments: Quit 38 years ago. Alcohol intake: never Substance use: current Substance use type: marijuana Other substance usage details: SMOKES 1 JOINT DAILY Lack of Transportation: No Lack of Food: Never True Current Housing: I Have Housing Concerned About Future Housing: No Difficulty Paying Gas/Electric Bills: No Difficulty Paying for Meds: No Currently Unemployed: No Education: High School Diploma/GED Difficulty w/ Childcare or Family Care: Decline to Answer Living arrangements: alone Additional living arrangements comments: DAUGHTER AUBREY HAS BEEN STAYING WITH PT Additional occupation/education comments: Retired from [employer]. Spiritual care concerns: No Course Vital Signs Vital signs: Vital Signs Temperature 97.7 F 02/09/23 21:14 Pulse Rate 92 02/09/23 21:14 Respiratory Rate 16 02/09/23 21:14 Blood Pressure 119/86 02/09/23 21:14 Pulse Oximetry 93 02/09/23 21:14 Oxygen Delivery Room Air 02/09/23 21:14 Temperature 97.7 F 02/09/23 21:14 Pulse Rate 92 02/09/23 21:14 Respiratory Rate 16 02/09/23 21:14 Blood Pressure 119/86 02/09/23 21:14 Pulse Oximetry 93 02/09/23 21:14 Oxygen Delivery Room Air 02/09/23 21:14 Medical Decision Making Vital Signs Vital Signs: Vital Signs Temperature 97.7 F 02/09/23 21:14 Pulse Rate 92 02/09/23 21:14 Respiratory Rate 16 02/09/23 21:14 Blood Pressure 119/86 02/09/23 21:14 Pulse Oximetry 93 02/09/23 21:14 Oxygen Delivery Room Air 02/09/23 21:14 Temperature 97.7 F 02/09/23 21:14 Pulse Rate 92 02/09/23 21:14 Respiratory Rate 16 02/09/23 21:14 Blood Pressure 119/86 02/09/23 21:14 Pulse Oximetry 93 02/09/23 21:14 Oxygen Delivery Room Air 02/09/23 21:14 Lab Data 02/09/23 23:14 02/09/23 23:14 Labs: Lab Results 02/09/23 02/09/23 Range/Units 23:14 23:14 WBC 30.7 H (4.5-10.0) K/mm3 RBC 4.22 (4.2-5.4) M/mm3 Hgb 10.7 L (12.0-15.0) g/dL Hct 35.9 L (37.0-47.0) % MCV 85.1 (80-100) fl MCH 25.4 L (26-34) pg MCHC 29.8 L (32-36) g/dl RDW 19.1 H (11.5-14.5) % Plt Count 287 D (150-375) k/mm3 MPV 9.6 (7.4-10.4) fl Immature Gran % (Auto) Not Reportable Neut % (Auto) Not Reportable Lymph % (Auto) Not Reportable [place] % (Auto) Not Reportable Eos % (Auto) Not Reportable Baso % (Auto) Not Reportable Lymph # (Auto) Not Reportable [place] # (Auto) Not Reportable Eos # (Auto) Not Reportable Baso # (Auto) Not Reportable Abs Immat Gran (auto) Not Rep
--- NOTE | 2023-02-10 01:23 | ED.GENADULT ---
HPI - General Adult General Chief complaint: Unspecified Stated complaint: pain all over Time Seen by Provider: 02/09/23 22:44 History of Present Illness HPI narrative: Patient with recent diagnosis of metastatic lung cancer with mets to bone and brain presents because her current pain medications at home, which is [place], has not been sufficient for pain control, and she is having such bad pain especially in her hip as she is unable to ambulate. Cannot take care of herself at home. Related Data Home Medications Medication Instructions Recorded Confirmed dexamethasone 4 mg tablet 4 mg BID 02/05/23 02/05/23 levetiracetam 500 mg tablet 500 mg PO BID 02/05/23 02/05/23 Allergies Allergy/AdvReac Type Severity Reaction Status Date / Time No Known Allergies Allergy Verified 02/09/23 21:18 Review of Systems Review of Systems: CONST: No fever. HEENT: No sore throat C/V: No chest pain RESP: No cough GI: no vomiting : No dysuria. M/S: Joint pain, especially left hip SKIN: No rash. NEURO: [No headache or focal numbness or weakness] [facility] Past Medical History Medical History (Updated 02/10/23 @ 01:28 by Rosemary Grossman MD) Anxiety Hypertension Surgical History Surgical History (Updated 01/21/23 @ 13:14 by Marcelo Mcmahon MD) Status post surgical removal of malignant neoplasm of skin Family History Family History Mother Family history of malignant neoplasm Other Family history of congenital heart disease Social History Social History (Updated 01/20/23 @ 23:15 by Jessica Tilley PA-C) Social History: Surrogate medical decision maker: Aubrey Donaldson, daughter. Code status: Full code. Smoking packs per day: 0.75 Smoking cigarettes per day: 15.0 Years smoked: 18 Smoking pack-years: 13.50 Smoking status: Former smoker Tobacco type: cigarettes Smoking end date: 11/02/84 Additional smoking assessment comments: Quit 38 years ago. 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 Spiritual care concerns: No Exam Narrative: EXAMINATION OF ORGAN SYSTEMS/BODY AREAS: Constitutional: Vital signs per nursing GENERAL: Appears uncomfortable in bed HEAD: Normal with no signs of head trauma. EYES: EOMI, conjunctiva normal ENT: Hearing grossly intact LUNGS: Nonlabored breathing. HEART: [Regular rate and rhythm] ABD: [Soft], [nontender to palpation] EXT: Discomfort with motion especially with movement of left hip SKIN: [No rashes or lesions.] NEURO: [Alert and oriented x 3. No gross focal sensory or strength deficits.] PSYCH: Normal affect Course Vital Signs Vital signs: Vital Signs Temperature 97.7 F 02/09/23 21:14 Pulse Rate 92 02/09/23 21:14 Respiratory Rate 16 02/09/23 21:14 Blood Pressure 119/86 02/09/23 21:14 Pulse Oximetry 93 02/09/23 21:14 Oxygen Delivery Room Air 02/09/23 21:14 Temperature 97.7 F 02/09/23 21:14 Pulse Rate 92 02/09/23 21:14 Respiratory Rate 16 02/09/23 21:14 Blood Pressure 119/86 02/09/23 21:14 Pulse Oximetry 93 02/09/23 21:14 Oxygen Delivery Room Air 02/09/23 21:14 Medical Decision Making MDM Narrative Medical decision making narrative: 1) Differential diagnosis: fracture, pain from bony mets 2) Co-morbidities: lung cancer 3) External notes rev
--- NOTE | 2023-02-10 02:05 | PM.IMHP ---
H&P: HPI History of Present Illness Date/Time: 02/10/23 02:05 Chief Complaint: Hip pain Narrative: This is a 72-year-old female with past medical history significant for recently diagnosed metastatic lung CA, patient is in preparation for chemotherapy has a scheduled appointment for Port-A-Cath placement. Presents to the emergency room due to left hip pain has not been able to sleep due to this and has been interfering with her daily activities as well she rates her pain at 9/10 in intensity it is a nagging dull achy pain. Has had weight loss in spite of good appetite, has had a cough that is getting better nonproductive. Preliminary workup was significant for CBC with the leukocyte count of 30,000. Patient is been admitted for further evaluation management and treatment. Review of Systems Review of Systems: Left hip pain, metastatic lung CA Constitutional: Constitutional: Denies chills, Reports fatigue, Denies fever(s), Reports lethargy, Denies malaise, Denies night sweats, Denies poor appetite and Reports weakness Eyes: Eyes: Denies change in vision ENT: Denies dysphagia and Denies odynophagia Cardiovascular: Cardiovascular: Denies chest pain, Reports leg edema and Denies palpitations Respiratory: Respiratory: Denies chest congestion, Denies cough and Denies pain on inspiration Gastrointestinal: Gastrointestinal: Denies abdominal pain, Denies dyspepsia, Denies heartburn and Denies nausea Genitourinary: Genitourinary: Denies dysuria Musculoskeletal: Musculoskeletal: Reports arthralgias and Reports muscle weakness Integumentary/Breasts: Skin/Breast: Denies rash Neurologic: Denies focal weakness and Denies Sensory deficit (Neuro) Psychiatric: Psychiatric: Reports no additional psychiatric complaints and Reports as per HPI Endocrine: Endocrine: Denies cold intolerance, Denies flushing, Denies heat intolerance, Denies polyphagia, Denies polydipsia and Denies palpitations Hematologic/Lymphatic: Hematologic/Lymphatic: Reports no additional hematologic/lymphatic complaints and Reports as per HPI Allergic/Immunologic: Allergic/Immunologic: Reports no additional allergic/immunologic complaints and Reports as per HPI PMF Past Medical History Medical History (Updated 02/10/23 @ 01:28 by Rosemary Grossman MD) Anxiety Hypertension Surgical History Surgical History (Updated 01/21/23 @ 13:14 by Marcelo Mcmahon MD) Status post surgical removal of malignant neoplasm of skin Family History Family History Mother Family history of malignant neoplasm Other Family history of congenital heart disease Social History Social History (Updated 01/20/23 @ 23:15 by Jessica Tilley PA-C) Social History: Surrogate medical decision maker: Aubrey Donaldson, daughter. Code status: Full code. Smoking packs per day: 0.75 Smoking cigarettes per day: 15.0 Years smoked: 18 Smoking pack-years: 13.50 Smoking status: Former smoker Tobacco type: cigarettes Smoking end date: 11/02/84 Additional smoking assessment comments: Quit 38 years ago. 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 Spiritual care concerns: No Meds Home Medications and Allergies Home Medications Medication Instructions Recorded Confirmed Type albuterol sulfate 90 mcg/actuation 2 puf
--- NOTE | 2023-02-10 03:00 | ADMGEN ---
This patient, Swati Mancia, was admitted to [facility] Surg Room 321-. Patient/family oriented to hospital policies and general routines including ID bracelet, bed and alarms, visiting hours, pain management, procedures, bathroom and other care routines, personal items, smoking policy, room service/diet, and visiting hours. Information on how to activate the Rapid Response Team has been discussed. Patient/Family are encouraged to report perceived risks to care and to ask questions if they do not understand what they are told or what they should do.
[2023-02-10] MEDS: HYDROcodone/acetaminophen (*CRX) 5-325 MG TABLET 1 TAB PO ×3 (03:40→23:05)
--- NOTE | 2023-02-10 09:29 | PM.IMPN ---
Progress Note: A&P Assessment and Plan (1) Intractable pain: Code(s): R52 - Pain, unspecified Status: Acute Assessment and Plan: Secondary to widespread lytic lesions. Continue pain management- MS contin 15 mg BID and PRN [place] PO and Dilaudid IV for breakthrough pain Supportive care PT/OT consult (2) Lung cancer: Code(s): C34.90 - Malignant neoplasm of unspecified part of unspecified bronchus or lung Status: Acute Assessment and Plan: Metastatic NSCLC with bone and brain metastasis. Patient is followed by Dr. Richey. She is scheduled for port placement 02/[address] Hernandez for palliative chemotherapy (patient reports this is planned for tomorrow, however, I have discussed this with general surgery and it is scheduled for currently). Consult General Surgery. Hold lovenox for procedure. Rad Onc also consulted outpatient. Zometa infusions outpatient per Oncology. Continue dexamethasone 4 mg BID and Keppra BID for brain mets. Continue supportive care and pain control (3) Cancer, metastatic to bone: Code(s): C79.51 - Secondary malignant neoplasm of bone Status: Acute Assessment and Plan: as above (4) Metastatic cancer to brain: Code(s): C79.31 - Secondary malignant neoplasm of brain Status: Acute Assessment and Plan: As above. (5) Emphysema lung: Code(s): J43.9 - Emphysema, unspecified Status: Chronic Assessment and Plan: Not actively wheezing or in acute exacerbation. Albuterol PRN (6) Hypertension: Code(s): I10 - Essential (primary) hypertension Status: Chronic Assessment and Plan: BP stable. No currently on antihypertensives. Monitor vital closely (7) Pulmonary embolism: Code(s): I26.99 - Other pulmonary embolism without acute cor pulmonale Status: Acute Assessment and Plan: PE to the proximal segmental branches of the lingula and left lower lobe diagnosed 01/20/2023. On therapeutic lovenox BID. (8) Left leg DVT: Code(s): I82.402 - Acute embolism and thrombosis of unspecified deep veins of left lower extremity Status: Acute Assessment and Plan: Thrombosis in the left femoral, popliteal, and gastrocnemius veins and partial thrombosis of the left posterior tibial veins diagnosed 01/20/2023. Per records, she did not have prescription coverage and was therefore prescribed therapeutic lovenox injections. Hold Lovenox per General Surgery for port placement. Time Spent With Patient Time with patient: 25 - 35 minutes Subjective Date/time seen: 02/10/23 09:29 She reports her back pain is improved today. She has not been able to walk or work with therapy, however. She states she is scheduled to have a port placed tomorrow outpatient. She has been taking lovenox injections twice daily for LLE DVT and PE diagnosed during her previous hospitalization in December, but states the dose was decreased so the port can be placed; she thinks it was changed to once daily. She reports BLE edema has been present since last admission. She denies paresthesia, erythema or calf pain. She also reports she has been wearing 1-2L of O2 intermittently for shortness of breath and especially at night since her last admission. She denies c/o chest pain, SOB, sputum color changes, abd pain, N/V/D, fever, chills, or dysuria. Review of Systems Review of Systems: All systems reviewed & are unremarkable except as noted in HPI and below Exam Narrative: General: No acute distress.? Sitting up in bed. Nontoxic appearing. Mental Status/Psych: Awake, alert and oriented x4 with clear speech. Pleasant and cooperative. Skin: Skin fair, warm, dry and intact without rashes or lesions. HEENT: Normocephalic. Sclera is non-icteric. Pupils equal and round. Oral mucosa pink and moist. Neck: No JVD. Heart: S1 and S2 regular rate and rhy
[2023-02-10] MEDS: DEXAMETHASONE 4 MG TABLET BY MOUTH ×2 (09:41→17:55)
[2023-02-10] MEDS: MORPHINE SULFATE (*CRX) 15 MG TABCR PO ×2 (09:42→20:25)
[2023-02-10] MEDS: levETIRAcetam 500 MG TABLET PO ×2 (09:42→17:54)
[2023-02-10] MEDS: ENOXAPARIN 80 MG/0.8 ML SYRINGE 70 MG SUB-Q (11:05)
[2023-02-10] MEDS: CYANOCOBALAMIN INJ 1,000 MCG/ML VIAL 1000 MCG IM (17:55)
[2023-02-11] MEDS: HYDROcodone/acetaminophen (*CRX) 5-325 MG TABLET 1 TAB PO ×2 (05:06→13:08)
[2023-02-11 05:59] VITALS: BP 117/83; PULSE 85; RESP 16; TEMP 35.8; O2SAT 98
[2023-02-11 06:33] LABS: Basophils Absolute Auto 0.1 K/mm3 (0.0-0.1); Basophils Percent Auto 0.3 % (0.2-1.2); Hematocrit 33.5 % (37.0-47.0); Immature Granulocyte Absolute 0.74 K/mm3 (0.00-0.031); Immature Granulocyte Percent A 2.4 % (0-0.5); Lymphocytes Absolute Auto 1.58 K/mm3 (0.9-3.2); Lymphocytes Percent Auto 5.2 % (18.3-44.2); Mean Corpuscular HGB Conc 29.9 g/dl (32-36); Mean Corpuscular Hemoglobin 25.2 pg (26-34); Mean Corpuscular Volume 84.4 fl (80-100); Mean Platelet Volume 10.6 fl (7.4-10.4); Monocytes Absolute Auto 2.2 K/mm3 (0.1-0.6); Neutrophils Absolute Auto 26.1 K/mm3 (1.3-6.7); Neutrophils Percent Auto 85.1 % (45.5-73.1); Platelet Count Result 224 k/mm3 (150-375); Red Blood Count 3.97 M/mm3 (4.2-5.4); Red Cell Distribution Width 18.8 % (11.5-14.5); White Blood Count 30.7 K/mm3 (4.5-10.0)
[2023-02-11 06:46] LABS: Alanine Aminotransferase 70 U/L (6-35); Albumin Level 3.2 g/dL (3.5-5.1); Alkaline Phosphatase 208 U/L (38-126); Anion Gap 6 mmol/L (8-16); Aspartate Amino Transferase 72 U/L (14-36); Bilirubin,Total 0.6 mg/dL (0.2-1.3); Blood Urea Nitrogen 19 mg/dL (7-17); Calcium 10.7 mg/dL (8.4-10.2); Carbon Dioxide 30 mmol/L (22-30); Chloride 99 mmol/L (98-107); Estimated CRCL calculation 55 ml/min; Estimated Glomerular Filt Rate > 60; Glucose 117 mg/dL (65-110); Potassium 4.3 mmol/L (3.4-5.0); Sodium 135 mmol/L (137-145)
[2023-02-11 06:56] LABS: Large Platelets Present; Platelet Clumps Present; Platelet Estimate Adequate (Adequate)
[2023-02-11 06:57] LABS: Anisocytosis 1+ (NORMAL); Hypochromasia 1+ (NORMAL); Schistocytes None Seen (NORMAL)
[2023-02-11] MEDS: HYDROmorphone HCL INJ (*CRX) 1 MG/ML SYR 0.5 MG IV PUSH ×2 (07:00→16:23)
[2023-02-11 07:22] LABS: Procalcitonin 0.3 ng/mL
[2023-02-11] MEDS: DEXAMETHASONE 4 MG TABLET BY MOUTH ×2 (08:13→16:25)
[2023-02-11] MEDS: MORPHINE SULFATE (*CRX) 15 MG TABCR PO ×2 (08:13→20:12)
[2023-02-11] MEDS: levETIRAcetam 500 MG TABLET PO ×2 (08:13→16:25)
--- NOTE | 2023-02-11 11:44 | CONS_ITS ---
This report was moved to the correct visit on 03/02/2023. Original report was signed by Juan Hernandez MD on 02/12/2023 1127. Assessment and Plan Assessment and plan (1) Intractable pain: Code(s): R52 - Pain, unspecified Status: Acute Assessment and Plan: Primarily left hip and back. Admitted for pain control (2) Lung cancer: Code(s): C34.90 - Malignant neoplasm of unspecified part of unspecified bronchus or lung Status: Acute Assessment and Plan: Right-sided lung cancer with metastases to brain and bone (3) Cancer, metastatic to bone: Code(s): C79.51 - Secondary malignant neoplasm of bone Status: Acute Assessment and Plan: Widespread, painful (4) Left leg DVT: Code(s): I82.402 - Acute embolism and thrombosis of unspecified deep veins of left lower extremity Status: Acute (5) Pulmonary embolism: Code(s): I26.99 - Other pulmonary embolism without acute cor pulmonale Status: Acute (6) Chronic anticoagulation: Code(s): Z79.01 - intermediate project manager (current) use of anticoagulants Status: Acute Assessment and Plan: Lovenox held for surgical procedure (7) Admission for fitting of Port-A-Cath: Code(s): Z45.2 - Encounter for adjustment and management of vascular access device Status: Acute Assessment and Plan: Plan to place Port-A-Cath under fluoroscopy tomorrow, 02/12/2023. History of Present Illness Consult details Consult date: 02/11/23 Reason for consult: central line (Port-A-Cath placement) Narrative: Swati Mancia is a 72 year old female with metastatic non-small cell right lung cancer.? She has bony metastases and intracranial metastases.? She is to have chemotherapy.? She is taken to surgery now for placement of a Port-A-Cath under fluoroscopy as an outpatient.? She also has a history of pulmonary embolism and is on Lovenox therapeutic dose.? This has been held prior to her procedure. She was scheduled to have this done as an outpatient but is currently admitted for pain control. She is taken to surgery on 02/12/2023 for placement of the Port-A-Cath. Review of Systems Review of Systems: All systems reviewed & are unremarkable except as noted in HPI and below (HPI and those items noted below) Constitutional: Constitutional: Denies chills and Denies fever(s) Cardiovascular: Cardiovascular: Denies chest pain, Denies diaphoresis, Denies dyspnea and Denies paroxysmal nocturnal dyspnea Respiratory: Respiratory: Denies chest congestion, Denies cough and Denies dyspnea Integumentary/Breasts: Skin/Breast: Denies lesions and Denies rash PMFSH Past Medical History Medical History Anxiety Cancer, metastatic to bone Degenerative disk disease Emphysema lung Hepatic steatosis Hypertension Left leg DVT 01/20/2023 Lung cancer Metastatic cancer to brain Pulmonary embolism 01/20/2023 Surgical History Surgical History Status post surgical removal of malignant neoplasm of skin Family History Family History Mother Family history of malignant neoplasm Sibling Family history of congenital heart disease Social History Social History Social History: Surrogate medical decision maker: Yesenia Donaldson, daughter. Code status: Full code. Smoking packs per day: 0.75 Smoking cigarettes per day: 15.0 Years smoked: 18 Smoking pack-years: 13.50 Smoking status: Former smoker Tobacco type: cigarettes Smoking end date: 11/02/84 Ad
[2023-02-11 14:00] VITALS: BP 148/96; PULSE 101; RESP 19; TEMP 36.2; O2SAT 94
--- NOTE | 2023-02-11 15:23 | PM.IMPN ---
Progress Note: A&P Assessment and Plan (1) Intractable pain: Code(s): R52 - Pain, unspecified Status: Acute Assessment and Plan: Secondary to widespread lytic lesions seen on nuclear medicine bone scan Continue pain management- MS contin 15 mg BID and PRN [place] PO and Dilaudid IV for breakthrough pain Supportive care PT/OT consult (2) Lung cancer: Code(s): C34.90 - Malignant neoplasm of unspecified part of unspecified bronchus or lung Status: Acute Assessment and Plan: Metastatic NSCLC with bone and brain metastasis. Patient is followed by Dr. Richey. She is scheduled for port placement 02/[address] Hernandez for palliative chemotherapy (patient reports this is planned for tomorrow, however, I have discussed this with general surgery and it is scheduled for currently). Consult General Surgery. Hold lovenox for procedure. Rad Onc also consulted outpatient. Zometa infusions outpatient per Oncology. Continue dexamethasone 4 mg BID and Keppra BID for brain mets. Continue supportive care and pain control (3) Cancer, metastatic to bone: Code(s): C79.51 - Secondary malignant neoplasm of bone Status: Acute Assessment and Plan: as above (4) Metastatic cancer to brain: Code(s): C79.31 - Secondary malignant neoplasm of brain Status: Acute Assessment and Plan: As above. (5) Emphysema lung: Code(s): J43.9 - Emphysema, unspecified Status: Chronic Assessment and Plan: Not actively wheezing or in acute exacerbation. Albuterol PRN (6) Hypertension: Code(s): I10 - Essential (primary) hypertension Status: Chronic Assessment and Plan: BP stable. No currently on antihypertensives. Monitor vital closely (7) Pulmonary embolism: Code(s): I26.99 - Other pulmonary embolism without acute cor pulmonale Status: Acute Assessment and Plan: PE to the proximal segmental branches of the lingula and left lower lobe diagnosed 01/20/2023. On therapeutic lovenox BID. (8) Left leg DVT: Code(s): I82.402 - Acute embolism and thrombosis of unspecified deep veins of left lower extremity Status: Acute Assessment and Plan: Thrombosis in the left femoral, popliteal, and gastrocnemius veins and partial thrombosis of the left posterior tibial veins diagnosed 01/20/2023. Per records, she did not have prescription coverage and was therefore prescribed therapeutic lovenox injections. Hold Lovenox per General Surgery for port placement. Can be resumed after surgery. Subjective Date/time seen: 02/11/23 15:23 Interval history: Patient sitting on the side of the bed where the room. Patient states that her left hip is with causing her pain as well as her right shoulder although she states that her right shoulder may be in pain due to her sleeping on it wrong. Patient has known metastatic lung cancer that has spread to the bone. She denies chest pain, difficulty breathing, cough, nausea and vomiting. Patient plans to have port placed today for chemotherapy. Review of Systems Review of Systems: All systems reviewed & are unremarkable except as noted in HPI and below Exam Narrative: GENERAL: Comfortable, no acute distress HENMT: moist mucous membranes EYES: EOM intact b/l NECK: no lymphadenopathy RESPIRATORY: distant lung sounds CARDIO: distant heart sounds GI: soft, nontender, bowel sounds present SKIN: no rashes EXTREMITIES: no edema, redness or tenderness Objective Data Vital Signs Vital Signs: Vital Signs - 24 hr 02/10/23 22:00 02/10/23 20:00 02/11/23 05:59 Temperature 97.0 F L 96.5 F L Pulse Rate 79 85 Respiratory Rate 18 16 Blood Pressure 104/85 117/83 Pulse Oximetry 92 94 98 Oxygen Delivery Nasal Cannula Oxygen Flow Rate 1 02/11/23 13:49 Temperature Puls
[2023-02-11 22:44] VITALS: BP 146/95; PULSE 86; RESP 16; TEMP 36.4; O2SAT 92
[2023-02-12] VITALS (10 sets, daily range): BP systolic 106–141; BP diastolic 69–86; PULSE 59–90; RESP 14–18; TEMP 36.3–37.4; O2SAT 91–100
[2023-02-12] MEDS: HYDROmorphone HCL INJ (*CRX) 1 MG/ML SYR 0.5 MG IV PUSH ×2 (04:59→20:39)
[2023-02-12 07:45] LABS: Hematocrit 35.6 % (37.0-47.0); Hemoglobin 10.9 g/dL (12.0-15.0); Mean Corpuscular HGB Conc 30.6 g/dl (32-36); Mean Corpuscular Hemoglobin 25.3 pg (26-34); Mean Corpuscular Volume 82.6 fl (80-100); Mean Platelet Volume 11.1 fl (7.4-10.4); Platelet Count Result 199 k/mm3 (150-375); Red Blood Count 4.31 M/mm3 (4.2-5.4); Red Cell Distribution Width 18.7 % (11.5-14.5); White Blood Count 36.6 K/mm3 (4.5-10.0)
[2023-02-12 07:51] LABS: Alanine Aminotransferase 98 U/L (6-35); Albumin Level 3.4 g/dL (3.5-5.1); Alkaline Phosphatase 245 U/L (38-126); Anion Gap 6 mmol/L (8-16); Aspartate Amino Transferase 75 U/L (14-36); Bilirubin,Total 0.7 mg/dL (0.2-1.3); Blood Urea Nitrogen 26 mg/dL (7-17); Calcium 11.4 mg/dL (8.4-10.2); Carbon Dioxide 33 mmol/L (22-30); Chloride 95 mmol/L (98-107); Estimated CRCL calculation 62 ml/min; Estimated Glomerular Filt Rate > 60; Glucose 119 mg/dL (65-110); Potassium 4.6 mmol/L (3.4-5.0); Sodium 134 mmol/L (137-145)
--- NOTE | 2023-02-12 10:30 | PC.NURSE ---
patient off of unit to surgery
--- NOTE | 2023-02-12 11:18 | WPDANESEPPF ---
Anes - Initial Pre Proc Eval Procedure: Operation Date: 02/12/23 12:00 Proposed Procedures p Insertion [place] Cath - Juan Hernandez MD Date/Time: 02/12/23 11:18 Surgeon: Mike Stapleton MD Pre Op Diagnosis: Intractable pain, inability to ambulate Patient Data Age: 72 Gender: F Height: 1.7 m Weight: 67.9 kg Last Vital Signs Temp 36.3 C L 02/12/23 05:38 Pulse 85 02/12/23 05:38 Resp 16 02/12/23 05:38 BP 106/86 02/12/23 05:38 Pulse Ox 92 02/12/23 08:24 O2 Del Method Room Air 02/12/23 09:30 O2 Flow Rate 1 02/10/23 20:00 Allergies Allergy/AdvReac Type Severity Reaction Status Date / Time No Known Allergies Allergy Verified 02/09/23 21:18 Home Medications Medication Instructions Recorded Confirmed Type albuterol sulfate 90 mcg/actuation 2 puff inhalation QID PRN 01/26/23 02/10/23 Rx aerosol inhaler shortness of breath or wheezing #8.5 grams enoxaparin 80 mg/0.8 mL 70 mg (0.7 mL) subcut Q12HR #60 mL 01/26/23 02/10/23 Rx subcutaneous syringe (Lovenox) hydrocodone 10 mg-acetaminophen 1 tablet PO Q6H PRN pain 7 days 01/26/23 02/10/23 Rx 325 mg tablet #30 tabs dexamethasone 4 mg tablet 4 mg BID 02/05/23 02/10/23 History levetiracetam 500 mg tablet 500 mg PO BID 02/05/23 02/10/23 History Laboratory Tests 02/11/23 02/12/23 02/12/23 10:31 07:21 07:21 WBC 36.6 K/mm3 H K/mm3 (4.5-10.0) RBC 4.31 M/mm3 M/mm3 (4.2-5.4) Hgb 10.9 g/dL L g/dL (12.0-15.0) Hct 35.6 % L % (37.0-47.0) MCV 82.6 fl fl (80-100) MCH 25.3 pg L pg (26-34) MCHC 30.6 g/dl L g/dl (32-36) RDW 18.7 % H % (11.5-14.5) Plt Count 199 k/mm3 k/mm3 (150-375) MPV 11.1 fl H fl (7.4-10.4) Sodium 134 mmol/L L mmol/L (137-145) Potassium 4.6 mmol/L mmol/L (3.4-5.0) Chloride 95 mmol/L L mmol/L (98-107) Carbon Dioxide 33 mmol/L H mmol/L (22-30) Anion Gap 6 mmol/L L mmol/L (8-16) BUN 26 mg/dL H mg/dL (7-17) Creatinine 0.70 mg/dL mg/dL (0.7-1.0) Estim Creat Clear Calc 62 ml/min ml/min Estimated GFR > 60 (59 - ) Glucose 119 mg/dL H mg/dL (65-110) Calcium 11.4 mg/dL H mg/dL (8.4-10.2) Total Bilirubin 0.7 mg/dL mg/dL (0.2-1.3) AST 75 U/L H U/L (14-36) ALT 98 U/L H U/L (6-35) Alkaline Phosphatase 245 U/L H U/L (38-126) Total Protein 7.0 g/dL g/dL (6.3-8.2) Albumin 3.4 g/dL L g/dL (3.5-5.1) Blood Type B Negative Antibody Screen Negative Patient hx anesthesia problems: none Family hx anesthesia problems: none Results Review: All pre-operative results and documents have been reviewed as part of the pre-operative evaluation. [facility] Past Medical History Medical History Anxiety Cancer, metastatic to bone Degenerative disk disease Emphysema lung Hepatic steatosis Hypertension Left leg DVT 01/20/2023 Lung cancer Metastatic cancer to brain Pulmonary embolism 01/20/2023 Surgical History Surgical History Status post surgical removal of malignant neoplasm of skin Family History Family History Mother Family history of malignant neoplasm Sibling Family history of congenital heart disease Social History Social History Social History: Surrogate medical decision maker: Yesenia Donaldson, daughter. Code status: Full code. Smoking packs per day: 0.75 Smoking cigarettes per day: 15.0 Years smoked: 18 Smoking pack-years: 13.50 Smoking status: Former smoker Tobacco type: cigarettes Smoking end date: 11/02/84 Additional smoking assessment comments:
[2023-02-12] MEDS: HYDROmorphone HCL INJ (*CRX) 1 MG/ML SYR IV PUSH (11:28)
--- NOTE | 2023-02-12 11:42 | PCPTNOTE ---
Attempted PT evaluation, pt off the floor for procedure.
--- NOTE | 2023-02-12 12:21 | WPDHPUPDATE1 ---
History and Physical Update Update Date/Time: 02/12/23 12:21 History and Physical has been reviewed, including an updated exam of the patient. There are NO changes in the patient's condition. Risks, benefits, and alternatives have been discussed and questions answered. Patient agrees to proceed with procedure.
[2023-02-12] MEDS: ceFAZolin 2 GM/D5W 50 ML 2 GM/50 ML BAG IVPB (12:34)
[2023-02-12] MEDS: HEPARIN SODIUM 5,000 UNITS/ML VIAL 1000 UNITS IRRIGATION (13:00)
[2023-02-12] MEDS: BUPIVACAINE/EPINEPHRINE 0.5% 50 ML VIAL INFILTRATE (13:00)
[2023-02-12 13:24] LABS: NIL 0.01 IU/mL; Quantiferon TB Plus, 1T NEGATIVE (NEGATIVE)
[2023-02-12] MEDS: LACTATED RINGERS 1,000 ML 30 ML IV CONT (13:25)
--- NOTE | 2023-02-12 13:27 | W.PM.PROC2 ---
Procedure Note - Detailed Date of Procedure 02/12/23 Pre-op Diagnosis Metastatic lung cancer, inadequate venous access Post-op Diagnosis Same Procedure Performed Placement left subclavian vortex Port-A-Cath under fluoroscopy Surgeon Juan Hernandez MD Assurance Assistant Janna Lyle BUSINESS EDITOR Anesthesia MAC and Local (0.5% [place] with epinephrine) Indications Patient is a 72-year-old woman with right-sided lung cancer and metastatic disease. She is to have chemotherapy. She is currently admitted the hospital for pain control. She is taken to surgery now for placement of a Port-A-Cath for chemotherapy administration. Findings Port-A-Cath tip was in the distal SVC right atrial junction by fluoroscopy Description of Procedure Patient was taken to surgery and IV sedation was administered. Prep and drape of the left subclavian area and left neck was carried out. The proposed left subclavian incision was marked on the skin. Local anesthetic was infiltrated into the skin and the deeper subcutaneous tissues. Incision was made and dissection was carried down through the subcutaneous. We continued the dissection through the pectoralis major fascia. I then created a subfascial pocket just inferior to the incision. Cautery was used for hemostasis. Additional local was infiltrated under the left clavicle. The left subclavian vein was cannulated and a guidewire was able to be passed into the superior vena cava. This position was documented by C-arm fluoroscopy. I then used fluoroscopy to measure the length of the Port-A-Cath that would be needed. Port-A-Cath tubing was cut to the appropriate length. An introducer and sleeve were then passed over the guidewire. This was done under fluoroscopy as well. The introducer and guidewire were removed. The Port-A-Cath was passed through the sleeve and into the superior vena cava. Its position was also checked with fluoroscopy. We then removed the sleeve and reviewed the position of the Port-A-Cath. All looked good. I sutured the Port-A-Cath to the pectoralis major muscle with 3-0 silk suture. The Port-A-Cath aspirated blood easily and flushed nicely with heparin. All looked good. The wound was closed with layered running 2 0 Vicryl suture. The skin was closed with running subcuticular 4-0 Monocryl skin suture. The wound was dressed with Exofin surgical adhesive. The patient was then awakened and taken to recovery in good condition. Sponge and needle counts were correct x2. Review of the chest x-ray on the imaging portable machine showed no pneumothorax and the tip of the Port-A-Cath in the SVC right atrial junction, good position. Implants Vortex Port-A-Cath Estimated Blood Loss -5 Urine Output 0 Drains No Packing No Pathology None sent Complications No immediate complications Condition Stable Disposition PACU [facility] Billing Surgery - Charge Forward: Surgery Billing (Placement Port-A-Cath under fluoroscopy)
[2023-02-12] MEDS: fentaNYL CITRATE INJ (*CRX) 100 MCG/2 ML VIAL 25 MCG IV PUSH ×4 (14:15→14:40)
--- NOTE | 2023-02-12 15:49 | PC.NURSE ---
Patient returned to unit 1514
--- NOTE | 2023-02-12 15:51 | PM.IMPN ---
Progress Note: A&P Assessment and Plan (1) Intractable pain: Code(s): R52 - Pain, unspecified Status: Acute Assessment and Plan: Secondary to widespread lytic lesions seen on nuclear medicine bone scan Continue pain management- MS contin 15 mg BID and PRN [place] PO and Dilaudid IV for breakthrough pain Supportive care PT/OT consult (2) Lung cancer: Code(s): C34.90 - Malignant neoplasm of unspecified part of unspecified bronchus or lung Status: Acute Assessment and Plan: Metastatic NSCLC with bone and brain metastasis. Patient is followed by Dr. Richey. She is scheduled for port placement 02/[address] Hernandez for palliative chemotherapy. Consult General Surgery. Hold lovenox for procedure. Port was placed on 02/12/2023. Rad Onc also consulted outpatient. Zometa infusions outpatient per Oncology. Continue dexamethasone 4 mg BID and Keppra BID for brain mets. Continue supportive care and pain control (3) Cancer, metastatic to bone: Code(s): C79.51 - Secondary malignant neoplasm of bone Status: Acute Assessment and Plan: as above (4) Metastatic cancer to brain: Code(s): C79.31 - Secondary malignant neoplasm of brain Status: Acute Assessment and Plan: As above. (5) Emphysema lung: Code(s): J43.9 - Emphysema, unspecified Status: Chronic Assessment and Plan: Not actively wheezing or in acute exacerbation. Albuterol PRN (6) Hypertension: Code(s): I10 - Essential (primary) hypertension Status: Chronic Assessment and Plan: BP stable. No currently on antihypertensives. Monitor vital closely (7) Pulmonary embolism: Code(s): I26.99 - Other pulmonary embolism without acute cor pulmonale Status: Acute Assessment and Plan: PE to the proximal segmental branches of the lingula and left lower lobe diagnosed 01/20/2023. On therapeutic lovenox BID. (8) Left leg DVT: Code(s): I82.402 - Acute embolism and thrombosis of unspecified deep veins of left lower extremity Status: Acute Assessment and Plan: Thrombosis in the left femoral, popliteal, and gastrocnemius veins and partial thrombosis of the left posterior tibial veins diagnosed 01/20/2023. Per records, she did not have prescription coverage and was therefore prescribed therapeutic lovenox injections. Hold Lovenox per General Surgery for port placement. Can be resumed after surgery. Subjective Date/time seen: 02/12/23 15:51 Interval history: Patient resting in bed postoperatively. Patient states that she feels very very weak and does not feel as if she could safely go home at this time. She is having difficulty with standing and moving really at all. She denies pain at this time. she does have bilateral lower extremity edema 0 and she states that she developed this approximately 2 weeks ago and had a full workup and is not on any medications for it. Patient denies chest pain, shortness a breath, cough, nausea, vomiting, body aches and chills. Review of Systems Review of Systems: All systems reviewed & are unremarkable except as noted in HPI and below Exam Narrative: GENERAL: Comfortable, no acute distress HENMT: moist mucous membranes EYES: EOM intact b/l NECK: no lymphadenopathy RESPIRATORY: distant lung sounds CARDIO: distant heart sounds GI: soft, nontender, bowel sounds present SKIN: no rashes EXTREMITIES: Bilateral lower extremity edema Objective Data Vital Signs Vital Signs: Vital Signs - 24 hr 02/11/23 22:44 02/11/23 20:00 02/12/23 05:38 Temperature 97.6 F 97.3 F L Pulse Rate 86 85 Respiratory Rate 16 16 Blood Pressure 146/95 H 106/86 Pulse Oximetry 92 91 Oxygen Delivery Room Air Oxygen Flow Rate 02/12/23 08:24 02/12/23 09:30 02/12/23 11:19 Temperature 99.3 F Puls
[2023-02-12] MEDS: LACTATED RINGERS 1,000 ML 100 ML IV CONT (16:19)
[2023-02-12] MEDS: DEXAMETHASONE 4 MG TABLET BY MOUTH (16:23)
[2023-02-12] MEDS: levETIRAcetam 500 MG TABLET PO (16:23)
[2023-02-12] MEDS: HYDROcodone/acetaminophen (*CRX) 10-325 MG TABLET 1 TAB PO (17:20)
[2023-02-12] MEDS: MORPHINE SULFATE (*CRX) 15 MG TABCR PO (20:10)
[2023-02-13] VITALS (8 sets, daily range): BP systolic 128–144; BP diastolic 76–85; PULSE 85–136; RESP 16–22; TEMP 36.3–36.6; O2SAT 88–95
[2023-02-13] MEDS: HYDROmorphone HCL INJ (*CRX) 1 MG/ML SYR 0.5 MG IV PUSH ×2 (03:39→10:15)
--- NOTE | 2023-02-13 08:38 | PCPTNOTE ---
Attempted PT evaluation, pt transferring off the unit for test at this time. Will Follow.
[2023-02-13 08:47] LABS: Hematocrit 33.4 % (37.0-47.0); Hemoglobin 9.9 g/dL (12.0-15.0); Mean Corpuscular HGB Conc 29.6 g/dl (32-36); Mean Corpuscular Hemoglobin 25.6 pg (26-34); Mean Corpuscular Volume 86.3 fl (80-100); Mean Platelet Volume 10.8 fl (7.4-10.4); Platelet Count Result 100 k/mm3 (150-375); Red Blood Count 3.87 M/mm3 (4.2-5.4); Red Cell Distribution Width 18.9 % (11.5-14.5); White Blood Count 35.1 K/mm3 (4.5-10.0)
[2023-02-13] MEDS: HYDROcodone/acetaminophen (*CRX) 10-325 MG TABLET 1 TAB PO (08:53)
[2023-02-13 08:56] LABS: Anion Gap 8 mmol/L (8-16); Blood Urea Nitrogen 23 mg/dL (7-17); Carbon Dioxide 27 mmol/L (22-30); Chloride 100 mmol/L (98-107); Estimated CRCL calculation 49 ml/min; Estimated Glomerular Filt Rate > 60; Glucose 111 mg/dL (65-110); Potassium 3.8 mmol/L (3.4-5.0); Sodium 135 mmol/L (137-145)
[2023-02-13] MEDS: MORPHINE SULFATE (*CRX) 15 MG TABCR PO (10:16)
[2023-02-13] MEDS: levETIRAcetam 500 MG TABLET PO (10:16)
[2023-02-13] MEDS: DEXAMETHASONE 4 MG TABLET BY MOUTH (10:17)
[2023-02-13] MEDS: ENOXAPARIN 40 MG/0.4 ML SYRINGE SUB-Q (10:17)
--- NOTE | 2023-02-13 10:47 | PCPTNOTE ---
Attempted PT evaluation, pt refused due to pain. RN present in room.
[2023-02-13] MEDS: oxyCODONE HCL (*CRX) 5 MG TAB IR PO (11:45)
--- NOTE | 2023-02-13 13:45 | WPDANESPN ---
Anes - Prog Note Post-Op Date/Time: 02/13/23 13:45 Cardiovascular status: normal Respiratory status: normal Airway patency: baseline Mental status: baseline Post-Op hydration status: normal Vital Signs: Last Vital Signs Temp 97.7 F 02/13/23 08:30 Pulse 118 H 02/13/23 10:15 Resp 20 02/13/23 10:15 BP 144/85 H 02/13/23 08:30 Pulse Ox 92 02/13/23 11:12 O2 Del Method Nasal Cannula 02/13/23 11:12 O2 Flow Rate 2 02/13/23 11:12 Pain Score (VAS): 0 I/O: Intake & Output 02/12/23 02/13/23 02/13/23 23:59 07:59 15:59 Intake Total 500 120 Output Total 900 Balance 500 -900 120 Laboratory Tests 02/13/23 08:35 02/13/23 08:35 02/13/23 02/13/23 08:35 08:35 WBC 35.1 H RBC 3.87 L Hgb 9.9 L Hct 33.4 L MCV 86.3 MCH 25.6 L MCHC 29.6 L RDW 18.9 H Plt Count 100 L MPV 10.8 H Sodium 135 L Potassium 3.8 Chloride 100 Carbon Dioxide 27 Anion Gap 8 BUN 23 H Creatinine 0.90 Estim Creat Clear Calc 49 Estimated GFR > 60 Glucose 111 H Calcium 12.0 H Post-procedural complaints: none Patient Feedback: Patient satisfied with anesthetic care.
[2023-02-13] MEDS: HYDROmorphone HCL INJ (*CRX) 1 MG/ML SYR IV PUSH (15:04)
[2023-02-13] MEDS: LORazepam INJ (*CRX) 2 MG/ML VIAL 1 MG IV PUSH (15:54)
--- NOTE | 2023-02-16 11:02 | PM.DS ---
DS: Admitting Diagnosis Discharge Date 02/13/23 Admitting Diagnosis uncontrolled pain, metastatic lung cancer, weakness DS: Discharge Diagnosis Discharge Diagnosis (1) Intractable pain: Code(s): R52 - Pain, unspecified Status: Acute (2) Lung cancer: Code(s): C34.90 - Malignant neoplasm of unspecified part of unspecified bronchus or lung Status: Acute (3) Cancer, metastatic to bone: Code(s): C79.51 - Secondary malignant neoplasm of bone Status: Acute (4) Metastatic cancer to brain: Code(s): C79.31 - Secondary malignant neoplasm of brain Status: Acute (5) Emphysema lung: Code(s): J43.9 - Emphysema, unspecified Status: Chronic (6) Hypertension: Code(s): I10 - Essential (primary) hypertension Status: Chronic (7) Pulmonary embolism: Code(s): I26.99 - Other pulmonary embolism without acute cor pulmonale Status: Acute (8) Left leg DVT: Code(s): I82.402 - Acute embolism and thrombosis of unspecified deep veins of left lower extremity Status: Acute DS: Summary Hospital Course Hospital Course: This is a 72-year-old female with past medical history significant for recently diagnosed metastatic lung cancer and patient is in preparation for chemotherapy and has a scheduled appointment for a Port-A-Cath placement on 02/12/2023.? Patient presented to the emergency room on 02/10/2023 due to severe left hip pain.? ? Patient has metastatic small cell lung cancer with metastases to the bone and brain.? Patient states that she has had recent weight loss, chronic cough that is not been productive.? Patient was found to have elevated leukocyte count of 30,000 in the ED is.? Patient had bone scan done a couple days prior which revealed metastases to the sternum, ribs, spine, bilateral hips, and bilateral femurs.? x-rays did not reveal hip fracture and pain is likely secondary to widespread lytic lesions.? Patient started on MS Contin 15 mg b.i.d. and p.r.n. [place] p.o. and? Dilaudid IV for breakthrough pain.? PT and OT consulted.? General surgery consulted for Port-A-Cath placement.? Port-A-Cath was placed on 02/12/2023.? Patient also on dexamethasone and Keppra due to brain metastases.? I have discussed the case with Dr. Richey and he stated that chemotherapy may extend patient's life a couple months although patient will most likely not go into remission. although patient is being treated with very powerful narcotics she is still experiencing an intense amount of pain in her hips.? I had a long discussion with patient's daughter about hospice and alternative options for her mother.? I discussed with patient's daughter that chemotherapy could potentially make the patient more weak and cause more pain for her.? I also said that? the patient is extremely uncomfortable and did we may want to consider comfort measures at this time.? Given patient's widespread metastatic disease I believe that is in the patient's best interest to be discharged to hospice. I had conversation with patient and patient's daughter about this as well and they both agreed that they wanted hospice consultation. Patient and her daughter have both agreed that it is in her best interest to go with hospice rather than pursue chemotherapy at this time. I had discussion with hospice fellow and due to patient's extreme pain patient will be discharged into inpatient hospice care.? There is still chance the patient could potentially be discharged home with hospice but at this time and due to patient's uncontrolled pain she will be discharged into inpatient hospice care. Time Spent with Patient Time attestation: Total time spent providing and/or coordinating discharge services: Exam Narrative: GENERAL: Comfortable, no acute distress HENMT: moist mucous membranes EYES: EOM intact b/l NECK: no lymphadenopathy RESPIRATORY: distant lung sounds CARDIO: distant heart sounds GI: soft, nontender, b
== END 2023-02-13 16:13 | disposition hospice, inpatient (51) | DRG 180 ==
LOC: ANHED 02-10 01:28 → ANH3MEDSUR 02-10 02:21
PROVIDERS: Internal Medicine Critical Care Medicine; Internal Medicine Hematology & Oncology; Nurse Practitioner Family; Surgery; Admitting Provider Internal Medicine; Emergency Provider Emergency Medicine; PCP Family Medicine; Visit Provider Internal Medicine
PROC: 0JHF3WZ Insertion of Totally Implantable Vascular Access Device into Left Upper Arm Subcutaneous Tissue and Fascia, Percutaneous Approach (ICD-10-PCS; principal; 2023-02-12 12:00)
DX: C34.90 Malignant neoplasm of unspecified part of unspecified bronchus or lung (principal); I26.99 Other pulmonary embolism without acute cor pulmonale; C79.31 Secondary malignant neoplasm of brain; C79.51 Secondary malignant neoplasm of bone; I82.412 Acute embolism and thrombosis of left femoral vein; I82.432 Acute embolism and thrombosis of left popliteal vein; I82.442 Acute embolism and thrombosis of left tibial vein; I82.462 Acute embolism and thrombosis of left calf muscular vein; F41.9 Anxiety disorder, unspecified; I10 Essential (primary) hypertension; J43.9 Emphysema, unspecified; M25.552 Pain in left hip; Z85.828 Personal history of other malignant neoplasm of skin; Z87.891 Personal history of nicotine dependence
CPT/HCPCS: 36415; 70450; 71045; 73502; 77001; 80048; 80053; 83880; 84145; 85025; 85027; 86480; 86850; 86900; 86901; 87040; 96374; 97166; 97535; 99285; A9270; C1788; J0690; J1170; J1644; J1650; J2060; J2704; J3010; J3420; J7030; J7120; J8540

== ENCOUNTER 2023-02-13 16:15 | HOS | payer OTHER, MEDICARE, SELFPAY ==
--- NOTE | 2023-02-13 16:22 | PM.DS ---
DS: Admitting Diagnosis Discharge Date 02/13/23 Admitting Diagnosis Progressive pain, weakness DS: Discharge Diagnosis Discharge Diagnosis (1) Admission for fitting of Port-A-Cath: Code(s): Z45.2 - Encounter for adjustment and management of vascular access device Status: Acute (2) Metastatic cancer to brain: Code(s): C79.31 - Secondary malignant neoplasm of brain Status: Acute (3) Cancer, metastatic to bone: Code(s): C79.51 - Secondary malignant neoplasm of bone Status: Acute (4) Lung cancer: Code(s): C34.90 - Malignant neoplasm of unspecified part of unspecified bronchus or lung Status: Acute (5) Anxiety as acute reaction to exceptional stress: Code(s): F41.1 - Generalized anxiety disorder; F43.0 - Acute stress reaction Status: Acute (6) Left leg DVT: Code(s): I82.402 - Acute embolism and thrombosis of unspecified deep veins of left lower extremity Status: Acute (7) Pulmonary embolism: Code(s): I26.99 - Other pulmonary embolism without acute cor pulmonale Status: Acute (8) Emphysema lung: Code(s): J43.9 - Emphysema, unspecified Status: Chronic (9) Intractable pain: Code(s): R52 - Pain, unspecified Status: Acute DS: Summary Hospital Course Reason for hospitalization: uncontrolled pain, metastatic lung cancer, weakness Hospital Course: This is a 72-year-old female with past medical history significant for recently diagnosed metastatic lung cancer and patient is in preparation for chemotherapy and has a scheduled appointment for a Port-A-Cath placement on 02/12/2023. Patient presented to the emergency room on 02/10/2023 due to severe left hip pain. 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 Patient states that she has had recent weight loss, chronic cough that is not been productive. Patient was found to have elevated leukocyte count of 30,000 in the ED is. Patient had bone scan done a couple days prior which revealed metastases to the sternum, ribs, spine, bilateral hips, and bilateral femurs. x-rays did not reveal hip fracture and pain is likely secondary to widespread lytic lesions. Patient started on MS Contin 15 mg b.i.d. and p.r.n. [place] p.o. and Dilaudid IV for breakthrough pain. PT and OT consulted. General surgery consulted for Port-A-Cath placement. Port-A-Cath was placed on 02/12/2023. Patient also on dexamethasone and Keppra due to brain metastases. I have discussed the case with Dr. Richey and he stated that chemotherapy may extend patient's life a couple months although patient will most likely not go into remission. although patient is being treated with very powerful narcotics she is still experiencing an intense amount of pain in her hips. I had a long discussion with patient's daughter about hospice and alternative options for her mother. I discussed with patient's daughter that chemotherapy could potentially make the patient more weak and cause more pain for her. I also said that the patient is extremely uncomfortable and did we may want to consider comfort measures at this time. Given patient's widespread metastatic disease I believe that is in the patient's best interest to be discharged to hospice. I had conversation with patient and patient's daughter about this as well and they both agreed that they wanted hospice consultation. Patient and her daughter have both agreed that it is in her best interest to go with hospice rather than pursue chemotherapy at this time. I had discussion with regional sales coordinator and due to patient's extreme pain patient will be discharged into inpatient hospice care. There is still chance the patient could potentially be discharged home with hospice but at this time and due to patient's uncontrolled pain she will be discharged into inpatient hospice care. Time Spent with Patient Time attestation: Total time spent p
[2023-02-13 17:40] VITALS: BMI 22.8
[2023-02-13 17:52] VITALS: BMI 22.8
[2023-02-13 18:04] VITALS: O2SAT 95
--- NOTE | 2023-02-13 18:42 | PC.NURSE ---
Called about concerns of scheduled Dilaudid. Called to verify order and express concerns. Pt is comfortable and relaxed from previous dose of Dilaudid and had concerns of administering more pain meds. He said he will call [facility] and will put in a order for a morphine drip and stated to start it when she gets restless.
[2023-02-13 20:00] VITALS: PULSE 98; RESP 16; O2SAT 94
[2023-02-13] MEDS: MORPHINE SULFATE INJ (*CRX) 50 MG in SODIUM CHLORIDE 0.9% IV 95 ML IV CONT (20:48)
[2023-02-13] MEDS: LORazepam INJ (*CRX) 2 MG/ML VIAL 1 MG IV PUSH (21:46)
[2023-02-13] MEDS: levETIRAcetam 500MG/NACL 100ML 500 MG/100 ML BAG 400 MG IVPB (21:51)
[2023-02-13 22:00] VITALS: BP 157/93; PULSE 100; RESP 14; TEMP 36.1; O2SAT 93
[2023-02-14] MEDS: LORazepam INJ (*CRX) 2 MG/ML VIAL 1 MG IV PUSH ×2 (01:10→04:28)
[2023-02-14] MEDS: MORPHINE SULFATE (*CRX) 2 MG/ML INJ IV PUSH ×4 (01:32→07:59)
[2023-02-14] MEDS: levETIRAcetam 500MG/NACL 100ML 500 MG/100 ML BAG 400 MG IVPB (07:59)
--- NOTE | 2023-02-14 08:09 | PM.IMHP ---
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 Discussed treatment options with both patient and her daughter. They both decided to be admitted into hospice to better control patients pain. Admitted into inpatient hospice service on date of 02/13/23 for pain control and management. Patient is experiencing extreme pain in her left hip and is receiving a morphine drip with PRN morphine 2mg q2hr. Review of Systems Review of Systems: All systems reviewed & are unremarkable except as noted in HPI and below PMFSH Past Medical History Medical History Anxiety Cancer, metastatic to bone Degenerative disk disease Emphysema lung Hepatic steatosis Hypertension Left leg DVT 01/20/2023 Lung cancer Metastatic cancer to brain Pulmonary embolism 01/20/2023 Surgical History Surgical History Status post surgical removal of malignant neoplasm of skin Family History Family History Mother Family history of malignant neoplasm Sibling Family history of congenital heart disease Social History Social History Social History: Surrogate medical decision maker: Yesenia Donaldson, daughter. Code status: Full code. Smoking packs per day: 0.75 Smoking cigarettes per day: 15.0 Years smoked: 18 Smoking pack-years: 13.50 Smoking status: Former smoker Tobacco type: cigarettes Smoking end date: 11/02/84 Additional smoking assessment comments: Quit 38 years ago. Alcohol intake: never Substance use: current Substance use type: marijuana Other substance usage details: SMOKES 1 JOINT DAILY Lack of Transportation: YES Lack of Food: Never True Current Housing: I Have Housing Concerned About Future Housing: No Difficulty Paying Gas/Electric Bills: No Difficulty Paying for Meds: No Currently Unemployed: No Education: High School Diploma/GED Difficulty w/ Childcare or Family Care: No Living arrangements: alone Additional living arrangements comments: DAUGHTER YESENIA HAS BEEN STAYING WITH PT Additional occupation/education comments: Retired from [employer]. Spiritual care concerns: No Meds Home Medications and Allergies Home Medications Medication Instructions Recorded Confirmed Type albuterol sulfate 90 mcg/actuation 2 puff inhalation QID PRN 01/26/23 02/13/23 Rx aerosol inhaler shortness of breath or wheezing #8.5 grams enoxaparin 80 mg/0.8 mL 70 mg (0.7 mL) subcut Q12HR #60 mL 01/26/23 02/13/23 Rx subcutaneous syringe (Lovenox) hydrocodone 10 mg-acetaminophen 1 tablet PO Q6H PRN pain 7 days 01/26/23 02/13/23 Rx 325 mg tablet #30 tabs dexamethasone 4 mg tablet 4 mg BID 02/05/23 02/13/23 History levetiracetam 500 mg tablet 500 mg PO BID 02/05/23 02/13/23 History Allergies Allergy/AdvReac Type Severity Reaction Status Date / Time No Known Allergies Allergy Verified 02/09/23 21:18 Vital Signs Vital Signs - 24 hr 02/13/23 18:04 02/13/23 22:00 02/13/23 20:00 Temperature 97 F L Pulse Rate 100 98 Respiratory Rate 14 16 Blood Pressure 157/93 H Pulse Oximetry 95 93 94 Oxygen Delivery Nasal Cannula Nasal Cannula Oxygen Flow Rate 3 3 Assessment and Plan Assessment and plan (1) Metastatic cancer to brain: Code(s): C79.31 - Secondary malignant neoplasm of brain Status: Acute (2) Cancer, metastatic to bone: Code(s): C79.51 - Secondary malignant neoplasm of bone Status: Acute (3) Lung cancer: Code(s): C34.90 - Malignant neopl
[2023-02-14 08:27] VITALS: O2SAT 92
[2023-02-14] MEDS: ATROPINE SULFATE 1% OPHTH SOLN 5 ML BOTTLE 1 DROP SUBLINGUAL ×2 (11:49→17:42)
[2023-02-14] MEDS: ARTIFICIAL TEARS OPHTH SOLN 15 ML BOTTLE 1 DROP EACH EYE ×2 (11:50→17:42)
[2023-02-14] MEDS: MORPHINE SULFATE INJ (*CRX) 50 MG in SODIUM CHLORIDE 0.9% IV 95 ML 6 MG IV CONT (17:42)
--- NOTE | 2023-02-14 21:50 | PC.NURSE ---
This patient at 1999 on 02/14/2023, pronounced by Jessi Martin, share dairy farmer
--- NOTE | 2023-02-15 00:50 | PC.NURSE ---
Pt on 02/14/23 at 20:00. Upon entrance to pt's room, this RN have noted that pt was not breathing, no chest rises. RN checked apical pulse and carotid and called charge manager for 2nd verification. Two-nurses verification completed at 20:00. This RN called [facility] and informed the rn hospice that pt was . Afterwards, this RN called pt's daughter Yesenia and also informed he that the patient was , obtained consent for the home to lemon picker pt's body and transfer it to Home. Consent witnessed by Jessi manager commission. Pt's daughter, Yesenia, also stated that she would rather see her mom at home, so she will not be coming by the hospital.
--- NOTE | 2023-02-15 06:54 | PM.DDS ---
Discharge Summary Date and Time Date of : 02/14/23 Time of : 20:00 Provider Pronounced By: Jamila Martin Probable Cause of Probable Cause of : Metastatic small cell lung cancer Summary Hospital Course: Patient with stage IV metastatic small cell lung cancer admitted into hospice care on 02/13/23 and started on morphine drip with PRN IV morphine and PRN IV Ativan. Patient peacefully on 02/14/23 at 20:00. Additional Data Confirmation of as documented by pronouncing clinician: Pupillary Reflex, Palpable Pulses, Response to Stimuli, Heart Tones and Breath Sounds Family: contacted Name of Provider Notified: Amber Christensen/Mike Stapleton Time Provider Notified: 20:55 Was code activated?: No Provider Requests Autopsy: No Family Requests Autopsy: No Mental Health Social Worker Notified: Yes Date [facility] Notified of : 02/14/23 Time [facility] Notified of : 20:40 Hospice patient?: Yes
== END 2023-02-14 20:00 | disposition expired | DRG 951 ==
PROVIDERS: Admitting Provider Internal Medicine; PCP Family Medicine; Visit Provider Internal Medicine Critical Care Medicine
DX: Z51.5 Encounter for palliative care (principal); C34.90 Malignant neoplasm of unspecified part of unspecified bronchus or lung; C79.31 Secondary malignant neoplasm of brain; C79.51 Secondary malignant neoplasm of bone; J43.9 Emphysema, unspecified
CPT/HCPCS: A9270; J1953; J2060; J2270